=== PATIENT | female | born 1960 | race Caucasian/White ===

== ENCOUNTER 2019-04-19 17:03 | Emergency (ER) | payer MEDICAID ==
[~2019-04-19] VITALS: Ht 157.5 cm; Wt 81.6 kg
[2019-04-19 17:47] LABS: Basophils # (auto) 0.1 uL; Basophils % (auto) 0.6 % (0.0-2.0); Eosinophils # (auto) 0.1 uL; Eosinophils % (auto) 0.4 % (0.0-7.0); Hematocrit 48.2 % (36.0-46.0); Hemoglobin 16.5 g/dL (12.2-16.2); Lymphocytes # (auto) 3.1 uL; Lymphocytes % (auto) 22.8 % (10.0-50.0); Mean Corpuscular Hemoglobin 30.5 pg (28.0-32.0); Mean Corpuscular Hgb Conc. 34.2 g/dL (32.0-36.0); Mean Corpuscular Volume 89.3 fL (80.0-100.0); Monocytes # (auto) 0.7 uL; Monocytes % (auto) 5.5 % (0.0-12.0); Neutrophils # (auto) 9.5 uL; Neutrophils % (auto) 70.7 % (37.0-80.0); Nucleated Red Blood Cells % 0.1 %; Platelet Count (auto) 308 10^3/uL (140-450); Red Cell Distribution Width 12.9 % (11.8-14.3); White Blood Cell 13.4 10^3/uL (4.4-10.8)
[2019-04-19 18:04] LABS: Albumin 3.9 g/dL (3.4-5.0); Anion Gap 8 (5-15); Blood Urea Nitrogen 13 mg/dL (7-18); Carbon Dioxide 26 mmol/L (21-32); Chloride 103 mmol/L (98-107); Glucose 101 mg/dL (74-106); Lipase 86 U/L (73-393); Magnesium 2.2 mg/dL (1.6-2.6); Potassium 3.4 mmol/L (3.5-5.1); Sodium 137 mmol/L (136-145)
[2019-04-19 18:10] LABS: Alanine Aminotransferase 20 U/L (13-56); Alkaline Phosphatase 108 U/L (45-117); Aspartate Aminotransferase 14 U/L (15-37); BUN/Creatinine Ratio 13.4; Bilirubin, Total 0.5 mg/dL (0.2-1.0); GFR African American 75 mL/min; GFR Non-African American 62 mL/min; Total Protein 8.1 g/dL (6.4-8.2)
[2019-04-19] MEDS ORDERED: ONDANSETRON HCL 4 MG/2 ML VIAL IV ONE (18:30)
[2019-04-19 19:00] VITALS: BP 105/66
[2019-04-19] MEDS ORDERED: ONDANSETRON ODT 4 MG TAB PO ONE (20:00)
== END 2019-04-19 20:15 | disposition home or self-care (01) ==
LOC: ER 17:03
DX: A08.4 Viral intestinal infection, unspecified (principal); F17.210 Nicotine dependence, cigarettes, uncomplicated; J44.9 Chronic obstructive pulmonary disease, unspecified; F15.10 Other stimulant abuse, uncomplicated; Z88.6 Allergy status to analgesic agent
CPT/HCPCS: 36415; 74176; 80053; 83690; 83735; 84484; 85025; 99284; Q0162; 93005

== ENCOUNTER 2025-04-04 14:32 | Inpatient (IN) | payer MEDICARE, MEDICAID ==
[~2025-04-04] VITALS: Ht 157.5 cm; Wt 69.0 kg
--- NOTE | 2025-04-04 15:11 | ED.PDOC ---
History of Present Illness HPI Comments This is a 65-year-old female who comes in with chief complaint of shortness for breath x1 hour prior to arrival. The patient was at home and started getting somewhat short of breath. She does have a history of COPD and asthma. She typically uses 3 L nasal cannula of oxygen but this time she was only 78% on the home oxygen. When the paramedics arrived, the patient was also wheezing. They gave her to hand-held nebulizers of albuterol and Atrovent and the patient went up to approximately 97%. The patient was then placed on 4 L nasal cannula and she is now at 90%. The patient denies any chest pain but she does have a wound over chest from the treated for breast cancer. The patient was diagnosed breast cancer approximately six years ago and underwent radiation and now has an open wound to the chest. After the albuterol treatment, the patient became somewhat nauseated and vomited upon arrival to the emergency department's Chief Complaint: Shortness of Breath Time Seen by MD: 14:39 Primary Care Provider: NONE Reviewed Notes: Nurses Notes, Airport Driver Notes, Medications, Allergies (Allergies listed above) Allergies: Coded Allergies: Meperidine (Verified Allergy, Unknown, 01/07/18) Morphine (Verified Allergy, Unknown, 01/07/18) Information Source: Patient, Emergency Med Personnel Mode of Arrival: EMS Severity: Moderate Timing: Hours Duration: Since onset Prehospital treatment: Beta-Agonist Tx, Breathing Tx, IVF Associated signs and symptoms No associated chest pain that the patient has shortness for breath and wheezing Past Medical History PAST MEDICAL HISTORY: Asthma, COPD Past Medical History (Other): History of breast cancer diagnosed six years ago Surgical History: Appendectomy, Surgical History (Other): This history of breast cancer surgery 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 DEOILING MACHINE OPERATOR History Family History Family History: Unknown Social History Smoker: Cigarettes, Less Than 1 Pack/Day Alcohol: Denies ETOH Use Drugs: Methamphetamine Lives In: Home Constitutional: denies: chills, diaphoresis, fatigue, fever, malaise, sweats, weakness, others EENTM: denies: blurred vision, double vision, ear bleeding, ear discharge, ear drainage, ear pain, ear ringing, eye pain, eye redness, hearing loss, mouth pain, mouth swelling, nasal discharge, nose bleeding, nose congestion, nose pain, photophobia, tearing, throat pain, throat swelling, voice changes, others Respiratory: reports: cough, shortness of breath; denies: hemoptysis, orthopnea, SOB at rest, SOB with excertion, stridor, wheezing, others Cardiovascular: denies: chest pain, dizzy spells, diaphoresis, Dyspnea on exertion, edema, irregular heart beat, left arm pain, lightheadedness, palpitations, PND, syncope, others Gastrointestinal: reports: nausea, vomiting; denies: abdomen distended, abdominal pain, blood streaked bowels, constipated, diarrhea, dysphagia, difficulty swallowing, hematemesis, melena, poor appetite, poor fluid intake, rectal bleeding, rectal pain, others Genitourinary: denies: abnormal vagina bleeding, burning, dyspareunia, dysuria, flank pain, frequency, hematuria, incontinence, pain, , vagina discharge, urgency, others Neurological: denies: dizziness, fainting, headache, left sided numbness, left sided weakness, numbness, paresthesia, pre-existing deficit, right sided numbness, right sided weakness, seizure, speech problems, tingling, tremors, weakness, others Musculoskeletal: denies: back pain, gout, joint pain, joint swelling, muscle pain, muscle stiffness, neck pain, others Integumetry: denies: bruises, change in color, change in hair/nails, dryness, laceration, lesions, lumps, rash, wounds, others Allergic/Immunocompromised: denies: Difficulty Healing, Frequent Infections, Hives, Itching, others Hematologic/Lymphatic: denies: anemia, blood clots, easy bleeding, easy bruising, swollen glands, others Endocrine: denies: excessive hunger, excessive sweating, excessive thirst, excessive urination, flushing, intolerance to cold, intolerance to heat, unexplained weight gain, unexplained weight loss, others Psychiatric: denies: anxiety, bipolar disorder, depression, hopeless, panic disorder, schizophrenia, sleepless, suicidal, others Physical Exam General Appearance: Moderate Distress HEENT: Pale Conjuntivae (L), Pale Conjuntivae (R), Pharynx Normal, TMs Normal Neck: Full Range of Motion, Non-Tender, Normal, Normal Inspection Respiratory: Chest Non-Tender, No Accessory Muscle Use, Respiratory Distress, Wheezing Cardiovascular: No Edema, No JVD, No Murmur, No Gallop, Normal Peripheral Pulses, Regular Rate/Rhythm Breast Exam: Other (The patient is open the chest with some packing) Gastrointestinal: No Organomegaly, Non Tender, No Pulsatile Mass, Normal Bowel Sounds, Soft Genitalia: Deferred Pelvic: Deferred Rectal: Deferred Extremities: No calf tenderness, Normal capillary refill, No pedal edema Musculoskeletal : Apperance: Normal Neurologic: Alert, right of way manager II-XII nml as Tested, No Motor Deficits, Normal Affect, Normal Mood, No Sensory Deficits Cerebellar Function: Normal Reflexes: Normal Skin: Dry, Pallor, Warm Lymphatic: No Adenopathy Was a procedure done? Was a procedure done?: No EKG EKG : Pulse Rate (adult): 129 Crosby: Normal Cardiac Rhythm: Afib ST: Nonsp Differential Dx Considerations may include: COPD exacerbation, atrial fibrillation with rapid response, COPD exacerbation, respiratory failure X-Ray, Labs, Meds, VS Vital Signs Date Time Temp Pulse Resp B/P (MAP) Pulse Ox O2 Delivery O2 Flow Rate FiO2 04/04/25 16:00 Non-Rebreather 15 N/A 04/04/25 15:59 128 04/04/25 15:41 101.4 04/04/25 15:11 129 04/04/25 15:10 Nasal Cannula* 6 44 04/04/25 15:10 101.4 128 25 120/53 (75) 90 101.4 04/04/25 14:47 129 04/04/25 14:45 99.5 88 18 130/70 87 99.5 Lab Test 04/04/25 16:19 04/04/25 15:31 Range/Units Urine Color Pending Urine Clarity Pending Urine pH Pending Urine Specific Jet Pending Urine Protein Pending Urine Ketones Pending Urine Blood Pending Urine Nitrite Pending Urine Bilirubin Pending Urine Urobilinogen Pending Urine Leukocyte Esterase Pending Urine RBC Pending Urine Microscopic WBC Pending Urine Squamous Epithelial Cells Pending Urine Bacteria Pending Urine Glucose Pending White Blood Count 10.6 4.4-10.8 10^3/uL Red Blood Count 4.04 4.0-5.20 10^6/uL Hemoglobin 10.9 L 12.2-16.2 g/dL Hematocrit 32.9 L 36.0-46.0 % Mean Corpuscular Volume 81.3 80.0-100.0 fL Mean Corpuscular Hemoglobin 27.0 L 28.0-32.0 pg Mean Corpuscular Hemoglobin Concent 33.2 32.0-36.0 g/dL Red Cell Distribution Width 16.0 H 11.8-14.3 % Platelet Count 196 140-450 10^3/uL Mean Platelet Volume 6.4 L 6.9-10.8 fL Neutrophils (%) (Auto) 96.4 H 37.0-80.0 % Lymphocytes (%) (Auto) 2.0 L 10.0-50.0 % Monocytes (%) (Auto) 1.3 0.0-12.0 % Eosinophils (%) (Auto) 0.1 0.0-7.0 % Basophils (%) (Auto) 0.2 0.0-2.0 % Neutrophils # (Auto) 10.2 H 1.6-8.6 10 ^3/uL Lymphocytes # (Auto) 0.2 L 0.4-5.4 10 ^3/uL Monocytes # (Auto) 0.1 0-1.3 10 ^3/uL Eosinophils # (Auto) 0 0-0.8 10 ^3/uL Basophils # (Auto) 0 0-0.2 10 ^3/uL Nucleated Red Blood Cells 0.0 % Platelet Estimate Pending Sodium Level 140 136-145 mmol/L Potassium Level 3.3 L 3.5-5.1 mmol/L Chloride Level 99 98-107 mmol/L Carbon Dioxide Level 28 20-31 mmol/L Anion Gap 13 5-15 Blood Urea Nitrogen 18 9-23 mg/dL Creatinine 0.63 0.550-1.02 mg/dL Glomerular Filtration Rate Calc 97 >90 mL/min BUN/Creatinine Ratio 28.6 H 10.0-20.0 Serum Glucose 102 74-106 mg/dL Lactic Acid Level Pending Calcium Level 8.5 L 8.7-10.4 mg/dL Troponin I High Sensitivity 25 </=34 ng/L B-Type Natriuretic Peptide 88.04 0-100 pg/mL Current Medications Medications (Trade) Dose Ordered Sig/Efren Route Start Time Stop Time Status Last Admin Methylprednisolone Sodium Succinate (Solu Medrol) 125 mg ONCE ONCE IV 04/04/25 14:45 04/04/25 14:47 DC 04/04/25 15:16 Ondansetron HCl (Zofran) 4 mg ONCE ONCE IV 04/04/25 15:15 04/04/25 15:16 DC 04/04/25 15:16 Acetaminophen (Tylenol Tablet) 650 mg ONCE ONCE PO 04/04/25 15:15 04/04/25 15:25 DC 04/04/25 15:41 Levofloxacin/ Dextrose 100 ml @ 100 mls/hr ONCE ONCE IV 04/04/25 16:15 04/04/25 17:14 04/04/25 16:33 IV Hep-Lock was established The patient was given a breathing treatment here in the emergency department's The patient's CBC is within normal limits. Patient was given Solu-Medrol 125 mg IV push The patient was given Zofran 4 mg IV push The patient was also given acetaminophen 650 mg by mouth nine the patient has a temperature of a 101.4 The patient is being admitted at this time Blood cultures x2 were drawn The lactic acid level is pending The patient was started on vancomycin and Levaquin after blood cultures were drawn The chest x-ray shows IMPRESSION: Innumerable nodules throughout both lungs, suspect metastatic disease. Please correlate with prior imaging. Images Reviewed?: Images reviewed and evaluated by me Time of 1ST Reevaluation: 15:10 Reevaluation 1ST: Unchanged Patient Education/Counseling: Diagnosis, Treatment, Prognosis Family Education/Counseling: No Family Present SEPSIS Sepsis Screen Physician Orders Complete Blood Count (04/04/25 14:44) Urinalysis (04/04/25 14:44) Med Neb Initial Treatment (04/04/25 14:44) Chest Portable (04/04/25 14:44) Heplock Iv (04/04/25 14:44) Pulse Oximetry (04/04/25 14:44) Oxygen (04/04/25 14:44) Prefitter (04/04/25 14:44) Blood Pressure (04/04/25 14:44) Electrocardigram (04/04/25 14:44) Troponin-I Hs (04/04/25 15:44) Troponin-I Hs (04/04/25 17:44) Electrocardigram (04/04/25 15:44) Electrocardigram (04/04/25 17:44) Ok To Use Picc (04/04/25 15:11) Dumont Catheters (04/04/25 ) Blood Culture (04/04/25 16:07) Lactic Acid W/ Reflex Order (04/04/25 16:07) Rapid Influenza A&B (04/04/25 16:07) Covid19 Antigen Mariela (04/04/25 ) Vancomycin 1gm/250ml Kit (04/04/25 16:15) Levofloxacin 500mg (Levaquin 500mg/ 100m (04/04/25 16:15) Rbc Morphology (04/04/25 15:31) Vital Signs Date Time Temp Pulse Resp B/P (MAP) Pulse Ox O2 Delivery O2 Flow Rate FiO2 04/04/25 16:00 Non-Rebreather 15 N/A 04/04/25 15:59 128 04/04/25 15:41 101.4 04/04/25 15:11 129 04/04/25 15:10 Nasal Cannula* 6 44 04/04/25 15:10 101.4 128 25 120/53 (75) 90 101.4 04/04/25 14:47 129 04/04/25 14:45 99.5 88 18 130/70 87 99.5 Laboratory Tests Test 04/04/25 15:31 Lactic Acid Level Pending White Blood Count 10.6 10^3/uL (4.4-10.8) Medications Medications Dose Ordered Sig/Efren Route Start Time Stop Time Status Last Admin Dose Admin Acetaminophen 650 mg ONCE ONCE PO 04/04/25 15:15 04/04/25 15:25 DC 04/04/25 15:41 Levofloxacin/ Dextrose 100 ml @ 100 mls/hr ONCE ONCE IV 04/04/25 16:15 04/04/25 17:14 04/04/25 16:33 Methylprednisolone Sodium Succinate 125 mg ONCE ONCE IV 04/04/25 14:45 04/04/25 14:47 DC 04/04/25 15:16 Ondansetron HCl 4 mg ONCE ONCE IV 04/04/25 15:15 04/04/25 15:16 DC 04/04/25 15:16 Departure 1 Departure Time of Disposition: 16:38 Impression: Primary Impression: COPD (chronic obstructive pulmonary disease) Qualified Codes: J44.9 - Chronic obstructive pulmonary disease, unspecified Additional Impression: Fever Qualified Codes: R50.9 - Fever, unspecified Disposition: 09 ADMITTED INPATIENT Admit to: Tele Condition: Fair Critical Care Note Critical Care Time?: Yes (45 min-critical care time only) Stability Stability form required: Yes Unstable for transfer: Telemetry monitoring (Telemetry monitoring required), ED Physician Assesment (Clinical assesment) Heart Score Heart Score: Heart Score Response (Comments) Value History Moderate Suspicious 1 EKG Repolarization Disturb 1 Age >65 2 Risk Factors >3 or Hx ASHD 2 Troponin 1-2 x's Normal limit 1 Total 7 JAM MAURER MD Apr 04, 2025 15:11
[2025-04-04] MEDS: methylPREDNISolone SOD SUCC 125 MG/2 ML VL IV ONE (15:16)
[2025-04-04] MEDS: ONDANSETRON HCL 4 MG/2 ML VIAL IV ONE (15:16)
--- NOTE | 2025-04-04 15:16 | DVH ---
CLINICAL HISTORY: sob TECHNIQUE: Single view of the chest was obtained. COMPARISON: CT CHEST/ABDOMEN/PELVIS STORAGE OF OUTSIDE FILMS on DOS: 11/28/24, XR CHEST 1 VIEW on DOS: 11/27/21, XR CHEST 1 VIEW on DOS: 11/27/21 FINDINGS: The heart size and pulmonary vasculature are normal. There are innumerable nodules throughout both daniela ngs. A right PICC terminates at the cavoatrial junction. IMPRESSION: Innumerable nodules throughout both lungs, suspect metastatic disease. Please correlate with prior im aging.
[2025-04-04] MEDS: ACETAMINOPHEN 325 MG TAB PO ONE (15:41)
[2025-04-04 16:01] LABS: Hematocrit 32.9 % (36.0-46.0); Hemoglobin 10.9 g/dL (12.2-16.2); Mean Corpuscular Hemoglobin 27.0 pg (28.0-32.0); Mean Corpuscular Volume 81.3 fL (80.0-100.0); Nucleated Red Blood Cells % 0.0 %
[2025-04-04 16:10] LABS: Chloride 99 mmol/L (98-107); Sodium 140 mmol/L (136-145)
[2025-04-04 16:11] LABS: Anion Gap 13 (5-15); Carbon Dioxide 28 mmol/L (20-31)
[2025-04-04 16:12] LABS: Calcium 8.5 mg/dL (8.7-10.4); Potassium 3.3 mmol/L (3.5-5.1)
[2025-04-04 16:17] LABS: BUN/Creatinine Ratio 28.6 (10.0-20.0); Blood Urea Nitrogen 18 mg/dL (9-23); Glucose 102 mg/dL (74-106)
[2025-04-04 16:38] LABS: Anisocytosis Slight
[2025-04-04 16:40] LABS: Stomatocytes Few
[2025-04-04 16:42] LABS: Urine Budding Yeast OCCASIONAL /hpf (None Seen); Urine Protein, UAD 1+ (Negative)
[2025-04-04 16:46] LABS: Lactic Acid w/Reflex 2.2 mmol/L (0.4-2.0)
[2025-04-04] MEDS: VANCOMYCIN 1GM/250ML KIT 250 ML IV ONE (17:45)
--- NOTE | 2025-04-04 18:28 | ECG ---
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
--- NOTE | 2025-04-04 18:28 | ECG ---
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
[2025-04-04] MEDS: HYDROmorphone HCL 2 MG/ML VL/or syr IV ONE (18:36)
[2025-04-04 19:25] VITALS: PULSE 88; RESP 16; O2SAT 96
[2025-04-04] MEDS ORDERED: HYDROcodone-ACET 5/325MG TAB PO PRN (20:15)
[2025-04-04] MEDS ORDERED: TEMAZEPAM 15 MG CAP PO PRN (20:15)
[2025-04-04 20:56] VITALS: O2SAT 94
[2025-04-04 21:00] VITALS: BP 109/62; PULSE 87; RESP 18; TEMP 98.2; O2SAT 94
[2025-04-04] MEDS: CEFEPIME 1GM/50ML 50 ML IV SCH (23:39)
[2025-04-04] MEDS: CLINDAMYCIN 600MG IV 50 ML IV SCH (23:39)
--- NOTE | 2025-04-05 01:16 | DVHHP2 ---
History of Present Illness Reason for Visit: Shortness for breath History of Present Illness 65-year-old female presents for evaluation of shortness for breath. Patient reports a history of breast cancer currently completing radiation therapy with [facility]. She reports developing open wounds across her chest that have bec ome infected. She has home health treat her wounds on a daily basis. She states chemotherapy is currently on hold due to infected wounds. She states developing worsening shortness for breath over the past one day. She reports having a scan of her chest two weeks ago and is awaiting results. Denies chest pain. Past Medical History Breast cancer, COPD Past Surgical History Appendectomy, Family History Noncontributory Smoke: <1 pack per day ALCOHOL: none Lives: with Family Review of Systems Review of Systems Review of systems are currently negative otherwise addressed in HPI. Allergies: Coded Allergies: Meperidine (Verified Allergy, Unknown, 01/07/18) Morphine (Verified Allergy, Unknown, 01/07/18) Medications Current Medications Medications Dose Ordered Sig/Efren Route Start Time Stop Time Status Last Admin Dose Admin Clindamycin Phosphate 50 ml @ 50 mls/hr Q8HR IV 04/04/25 22:00 04/04/25 23:39 50 MLS/HR Cefepime HCl 50 ml @ 12.5 mls/hr Q12HR IV 04/04/25 22:00 04/04/25 23:39 12.5 MLS/HR Hydromorphone HCl 0.5 mg Q6HPRN PRN IV 04/04/25 20:15 Albuterol 2.5 mg Q6HPRN PRN NEB 04/04/25 20:15 Acetaminophen/ Hydrocodone Bitart 1 tab Q4HP PRN PO 04/04/25 20:15 Temazepam 15 mg QHSP PRN PO 04/04/25 20:15 Ondansetron HCl 4 mg Q4HP PRN IV 04/04/25 20:15 Acetaminophen 650 mg Q6HP PRN PO 04/04/25 20:15 Exam Vital Signs Vital Signs Date Time Temp Pulse Resp B/P (MAP) Pulse Ox O2 Delivery O2 Flow Rate FiO2 04/05/25 00:00 78 04/05/25 00:00 14 107/49 (68) 98 04/04/25 21:00 98.2 5.0 40 98.2 04/04/25 20:56 Nasal Cannula Exam Gen: 65-year-old female in mild distress Skin: Warm, dry, normal color and texture, multiple open wounds across her chest HEENT: Normocephalic atraumatic, mucous membranes moist and pink. Neck: Cervical and supraclavicular nodes normal without enlargement, trachea is midline, thyroid gland is normal without masses. Pulmonary: Clear to auscultation and percussion bilaterally. Cardiac: Regular rate and rhythm. No murmur Abdomen: Soft, nontender, nondistended, bowel sounds present all 4 quadrants, no guarding, no rigidity, no organomegaly. Extremities: No cyanosis, clubbing, no edema Neuro: Cranial nerves II through XII grossly intact, normal affect and speech, no focal motor deficits. Labs/Xrays ORDERING PHYSICIAN: JAM MAURER MD PROCEDURE(s): CXRP - CHEST PORTABLE REASON: sob ORDER NUMBER(s): [id number], ACCESSION NUMBER(s): [id number] CLINICAL HISTORY: sob TECHNIQUE: Single view of the chest was obtained. COMPARISON: CT CHEST/ABDOMEN/PELVIS STORAGE OF OUTSIDE FILMS on DOS: 11/28/24, XR CHEST 1 VIEW on DOS: 11/27/21, XR CHEST 1 VIEW on DOS: 11/27/21 FINDINGS: The heart size and pulmonary vasculature are normal. There are innumerable nodules throughout both lungs. A right PICC terminates at the cavoatrial junction. IMPRESSION: Innumerable nodules throughout both lungs, suspect metastatic disease. Please correlate with prior imaging. Labs Test 04/04/25 18:47 04/04/25 17:13 04/04/25 16:19 04/04/25 15:31 Range/Units Troponin I High Sensitivity 23 </=34 ng/L Lactic Acid Level 2.3 *H 0.4-2.0 mmol/L Urine Color Yellow Yellow Urine Clarity Turbid H Clear Urine pH 6.0 5.0-9.0 Urine Specific [place] 1.031 1.001-1.035 Urine Protein 1+ H Negative Urine Ketones 1+ H Negative Urine Blood 3+ H Negative /uL Urine Nitrite Negative Negative Urine Bilirubin Negative Negative Urine Urobilinogen Normal Negative mg/dL Urine Leukocyte Esterase Trace Negative /uL Urine RBC 417 0 - 4 /hpf Urine Microscopic WBC 10 H 0-5 /HPF Urine Squamous Epithelial Cells Many <5 /hpf Urine Bacteria Few H None Seen /hpf Urine Mucus Few None Seen Urine Yeast (Budding) Occasional None Seen /hpf Urine Glucose Normal Normal mg/dL White Blood Count 10.6 4.4-10.8 10^3/uL Red Blood Count 4.04 4.0-5.20 10^6/uL Hemoglobin 10.9 L 12.2-16.2 g/dL Hematocrit 32.9 L 36.0-46.0 % Mean Corpuscular Volume 81.3 80.0-100.0 fL Mean Corpuscular Hemoglobin 27.0 L 28.0-32.0 pg Mean Corpuscular Hemoglobin Concent 33.2 32.0-36.0 g/dL Red Cell Distribution Width 16.0 H 11.8-14.3 % Platelet Count 196 140-450 10^3/uL Mean Platelet Volume 6.4 L 6.9-10.8 fL Neutrophils (%) (Auto) 96.4 H 37.0-80.0 % Lymphocytes (%) (Auto) 2.0 L 10.0-50.0 % Monocytes (%) (Auto) 1.3 0.0-12.0 % Eosinophils (%) (Auto) 0.1 0.0-7.0 % Basophils (%) (Auto) 0.2 0.0-2.0 % Neutrophils # (Auto) 10.2 H 1.6-8.6 10 ^3/uL Lymphocytes # (Auto) 0.2 L 0.4-5.4 10 ^3/uL Monocytes # (Auto) 0.1 0-1.3 10 ^3/uL Eosinophils # (Auto) 0 0-0.8 10 ^3/uL Basophils # (Auto) 0 0-0.2 10 ^3/uL Nucleated Red Blood Cells 0.0 % Platelet Estimate Adequate Anisocytosis (manual) Slight Stomatocytes Few Sodium Level 140 136-145 mmol/L Potassium Level 3.3 L 3.5-5.1 mmol/L Chloride Level 99 98-107 mmol/L Carbon Dioxide Level 28 20-31 mmol/L Anion Gap 13 5-15 Blood Urea Nitrogen 18 9-23 mg/dL Creatinine 0.63 0.550-1.02 mg/dL Glomerular Filtration Rate Calc 97 >90 mL/min BUN/Creatinine Ratio 28.6 H 10.0-20.0 Serum Glucose 102 74-106 mg/dL Calcium Level 8.5 L 8.7-10.4 mg/dL B-Type Natriuretic Peptide 88.04 0-100 pg/mL SEPSIS Sepsis Screen Date sepsis recognized/suspect: Apr 04, 2025 Time Sepsis recognized/suspect: 1929 Recent Procedure: No On Antibiotic Therapy: Yes Respiratory Rate >20: No Heart Rate >90: No Temp<36 C (96.8 F) or >38.3 C: Yes SBP <90 or MAP <65 mmHG: No New Acute Mental Status Change: No Is the patient on CPAP, BIPAP,: No Physician Orders Admit (04/04/25 19:54) Clindamycin 600mg Iv (Cleocin Iv) (04/04/25 22:00) Cefepime 1gm/50ml (Maxipime 1gm/50ml) (04/04/25 22:00) Hydromorphone Injection (Dilaudid Inject (04/04/25 20:15) Albuterol Medneb (Ventolin Medneb) (04/04/25 20:15) Hydrocodone-Acet 5/325mg Tab (Dexter 5/32 (04/04/25 20:15) Temazepam (Restoril) (04/04/25 20:15) Ondansetron Hcl (Zofran) (04/04/25 20:15) Complete Blood Count (04/05/25 04:00) Comprehensive Metabolic Panel (04/05/25 04:00) Cardiac Diet-2gna,Lofat,Lochol (04/05/25 Breakfast) Condition: Stable (04/04/25 20:01) Acetaminophen Tablet (Tylenol Tablet) (04/04/25 20:15) Bedrest With Bathroom Privileg (04/04/25 20:01) *Consult Dr. Ulices Steele (04/04/25 20:01) *Consult (04/04/25 20:01) Wound Culture W/ Gs (04/04/25 21:12) Vital Signs Date Time Temp Pulse Resp B/P (MAP) Pulse Ox O2 Delivery O2 Flow Rate FiO2 04/05/25 00:00 78 04/05/25 00:00 77 14 107/49 (68) 98 04/04/25 22:00 88 18 118/62 (80) 04/04/25 21:00 98.2 87 18 109/62 94 5.0 40 98.2 04/04/25 20:56 94 Nasal Cannula 5.0 04/04/25 20:56 94 Nasal Cannula* 4 36 04/04/25 20:00 87 04/04/25 20:00 98.2 87 16 109/62 (78) 96 98.2 04/04/25 19:25 88 16 96 Nasal Cannula* 6 44 04/04/25 19:14 86 10 177/84 04/04/25 18:36 90 24 112/49 04/04/25 18:16 120 25 115/66 (82) 97 Laboratory Tests Test 04/04/25 15:31 04/04/25 17:13 Lactic Acid Level 2.2 mmol/L (0.4-2.0) *H 2.3 mmol/L (0.4-2.0) *H White Blood Count 10.6 10^3/uL (4.4-10.8) Medications Medications Dose Ordered Sig/Efren Route Start Time Stop Time Status Last Admin Dose Admin Acetaminophen 650 mg ONCE ONCE PO 04/04/25 15:15 04/04/25 15:25 DC 04/04/25 15:41 650 MG Cefepime HCl 50 ml @ 12.5 mls/hr Q12HR IV 04/04/25 22:00 04/04/25 23:39 12.5 MLS/HR Clindamycin Phosphate 50 ml @ 50 mls/hr Q8HR IV 04/04/25 22:00 04/04/25 23:39 50 MLS/HR Hydromorphone HCl 0.5 mg ONCE ONCE IV 04/04/25 18:30 04/04/25 18:31 DC 04/04/25 18:36 0.5 MG Levofloxacin/ Dextrose 100 ml @ 100 mls/hr ONCE ONCE IV 04/04/25 16:15 04/04/25 17:14 DC 04/04/25 16:33 100 MLS/HR Methylprednisolone Sodium Succinate 125 mg ONCE ONCE IV 04/04/25 14:45 04/04/25 14:47 DC 04/04/25 15:16 125 MG Ondansetron HCl 4 mg ONCE ONCE IV 04/04/25 15:15 04/04/25 15:16 DC 04/04/25 15:16 4 MG Vancomycin HCl 250 ml @ 250 mls/hr ONCE ONCE IV 04/04/25 16:15 04/04/25 17:14 DC 04/04/25 17:45 250 MLS/HR Assessment/Plan Assessment/Plan Assessment Acute on chronic respiratory failure COPD exacerbation ? Metastatic disease History of breast cancer Hypokalemia Multiple infected open wounds across chest Plan Admit the patient to [facility] to the hospitalist Clindamycin/cefepime Wound consult Wound cultures Pulmonary consult Oncology consultation Pain management Continue treatment per orders. Plan discussed with: Patient My Orders Orders - ASHLEY KENT AGACNP Procedure Category Date Status Time Admit ADMIT 04/04/25 Transmitted 19:54 Clindamycin 600mg Iv PHA 04/04/25 In Process (Cleocin Iv) 22:00 Cefepime 1gm/50ml PHA 04/04/25 In Process (Maxipime 1gm/50ml) 22:00 Hydromorphone PHA 04/04/25 In Process Injection (Dilaudid 20:15 Albuterol Medneb PHA 04/04/25 In Process (Ventolin Medneb) 20:15 Hydrocodone-Acet PHA 04/04/25 In Process 5/325mg Tab (Dexter 20:15 Temazepam (Restoril) PHA 04/04/25 In Process 20:15 Ondansetron Hcl PHA 04/04/25 In Process (Zofran) 20:15 Complete Blood Count LAB 04/05/25 Logged 04:00 Comprehensive LAB 04/05/25 Logged Metabolic Panel 04:00 Cardiac DIET 04/05/25 Transmitted Diet-2gna,Lofat,Lochol Breakfast Condition: Stable MAYRA 04/04/25 In Process 20:01 Acetaminophen Tablet PHA 04/04/25 In Process (Tylenol Tablet) 20:15 Bedrest With Bathroom MAYRA 04/04/25 In Process Privileg 20:01 *Consult Dr. Ulices Steele CONS 04/04/25 Transmitted 20:01 *Consult CONS 04/04/25 Transmitted 20:01 Wound Culture W/ Gs MAGGI 04/04/25 In Process 21:12 Date of Service: Apr 04, 2025 Billing Provider: ASHLEY KENT Common Visit Codes: [id number] INP/OBS CARE (HIGH) ASHLEY KENT Apr 05, 2025 01:16
[2025-04-05 05:25] LABS: Hematocrit 30.7 % (36.0-46.0); Hemoglobin 10.0 g/dL (12.2-16.2); Nucleated Red Blood Cells % 0.0 %
[2025-04-05 05:26] LABS: Mean Corpuscular Hemoglobin 26.6 pg (28.0-32.0); Mean Corpuscular Volume 81.6 fL (80.0-100.0)
[2025-04-05 05:42] LABS: Alanine Aminotransferase 14 U/L (7-40); Albumin 3.4 g/dL (3.2-4.8); Anion Gap 10 (5-15); BUN/Creatinine Ratio 23.7 (10.0-20.0); Blood Urea Nitrogen 14 mg/dL (9-23); Calcium 8.9 mg/dL (8.7-10.4); Carbon Dioxide 29 mmol/L (20-31); Chloride 98 mmol/L (98-107); Potassium 3.7 mmol/L (3.5-5.1); Sodium 137 mmol/L (136-145); Total Protein 6.6 g/dL (5.7-8.2)
[2025-04-05 05:43] LABS: Bilirubin, Total 0.4 mg/dL (0.2-1.0)
[2025-04-05 05:45] LABS: Alkaline Phosphatase 366 U/L (46-116); Glucose 126 mg/dL (74-106)
[2025-04-05 06:02] VITALS: O2SAT 94
[2025-04-05] MEDS: ACETAMINOPHEN 325 MG TAB PO PRN (06:29)
[2025-04-05 08:00] VITALS: PULSE 76; RESP 14; O2SAT 98
[2025-04-05] MEDS: HYDROmorphone HCL 2 MG/ML VL/or syr IV PRN (09:24)
[2025-04-05] MEDS: ONDANSETRON HCL 4 MG/2 ML VIAL IV PRN (09:26)
--- NOTE | 2025-04-05 10:53 | DVHPN2 ---
Subjective The patient seen and examined at bedside. Feel better but still SOB. Reviewed: Care Plan, H&P, Labs, Medications, Previous Orders, Radiology Changes from previous H/P or p: No Changes Objective Vitals Vital Signs Date Time Temp Pulse Resp B/P (MAP) Pulse Ox O2 Delivery O2 Flow Rate FiO2 04/05/25 10:25 80 12 115/60 04/05/25 09:41 97.3 04/05/25 06:02 94 Nasal Cannula* 5 40 Intake/Output Intake and Output 04/05/25 07:00 Intake Total 150 ml Balance 150 ml Intake IV Total 150 ml General Appearance: Alert, Oriented X3, Cooperative, mild distress HEENT: Atraumatic, PERRLA, EOMI, Mucous membr. moist/pink Neck: Supple Lungs: Clear to auscultation, Normal air movement Cardiovascular: Regular rate, Normal S1, Normal S2, No murmurs, Gallops, Rubs Abdomen: Normal bowel sounds, Soft, No tenderness Neuro: Cranial nerves 3-12 NL Psych/Mental Status: Mental status NL Medications Current Medications Medications Dose Ordered Sig/Efren Route Start Time Stop Time Status Last Admin Dose Admin Clindamycin Phosphate 50 ml @ 50 mls/hr Q8HR IV 04/04/25 22:00 04/05/25 06:34 50 MLS/HR Cefepime HCl 50 ml @ 12.5 mls/hr Q12HR IV 04/04/25 22:00 04/04/25 23:39 12.5 MLS/HR Hydromorphone HCl 0.5 mg Q6HPRN PRN IV 04/04/25 20:15 04/05/25 09:24 0.5 MG Albuterol 2.5 mg Q6HPRN PRN NEB 04/04/25 20:15 Temazepam 15 mg QHSP PRN PO 04/04/25 20:15 Ondansetron HCl 4 mg Q4HP PRN IV 04/04/25 20:15 04/05/25 09:26 4 MG Acetaminophen 650 mg Q6HP PRN PO 04/04/25 20:15 04/05/25 06:29 650 MG Oxycodone/ Acetaminophen 1 tab Q4HP PRN PO 04/05/25 07:15 Laboratory Results Laboratory Tests 04/05/25 04:53 Chemistry Test 04/04/25 15:31 04/05/25 04:53 Calcium Level 8.5 mg/dL (8.7-10.4) L 8.9 mg/dL (8.7-10.4) Albumin 3.4 g/dL (3.2-4.8) Total Protein 6.6 g/dL (5.7-8.2) Cardiac Markers Test 04/04/25 15:31 B-Type Natriuretic Peptide 88.04 pg/mL (0-100) LFT Test 04/05/25 04:53 Alanine Aminotransferase (ALT) 14 U/L (7-40) Alkaline Phosphatase 366 U/L (46-116) H Aspartate Amino Transferase (AST) 48 U/L (13-40) H Total Bilirubin 0.4 mg/dL (0.2-1.0) Urinalysis Test 04/04/25 16:19 Urine Color Yellow (Yellow) Urine Clarity Turbid (Clear) H Urine pH 6.0 (5.0-9.0) Urine Specific [place] 1.031 (1.001-1.035) Urine Protein 1+ (Negative) H Urine Ketones 1+ (Negative) H Urine Blood 3+ /uL (Negative) H Urine Nitrite Negative (Negative) Urine Bilirubin Negative (Negative) Urine Urobilinogen Normal mg/dL (Negative) Urine Leukocyte Esterase Trace /uL (Negative) Urine RBC 417 /hpf (0 - 4) Urine Microscopic WBC 10 /HPF (0-5) H Urine Squamous Epithelial Cells Many /hpf (<5) Urine Bacteria Few /hpf (None Seen) H Urine Mucus Few (None Seen) Urine Yeast (Budding) Occasional /hpf (None Urine Glucose Normal mg/dL (Normal) Microbiology Microbiology Date/Time Source Procedure Growth Status 04/04/25 15:31 Blood Blood Culture - Preliminary Resulted Labs and/or images reviewed: Labs reviewed by me Assessment/Plan Assessment/Plan Acute on chronic respiratory failure COPD exacerbation ? Metastatic disease History of breast cancer Hypokalemia Multiple infected open wounds across chest Plan Continue current management. Continue with Clindamycin and cefepime IV Per patient, she had treatment at [facility] for breast cancer with chemotherapy. However, the doctor said she didn't need mastectomy. 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 Waiting for precision lens generator to see patient. Wound consult Wound cultures Pain management with [place]. Per patient she will see her oncologist at [facility] again. This medical document was created using an electronic medical record system with [employer] direct computerized dictation system. Although this document has been carefully reviewed, there may still be some phonetic and typographical errors. These areas are purely typographical due to imperfections of the software programs, and do not reflect any compromise in the patient's medical care. Plan discussed with: Patient Date of Service: Apr 05, 2025 Billing Provider: JUAN CAST MD Common Visit Codes: [id number] INP/OBS CARE(HIGH) JUAN CAST MD Apr 05, 2025 10:53
[2025-04-05 12:55] LABS: COVID19 ANTIGEN SOFIA FIA NEGATIVE (NEGATIVE)
[2025-04-05] MEDS: OXYCODONE W/ ACETAMINOPHEN 5/325MG TABLET PO PRN (13:21)
[2025-04-05 18:08] VITALS: BP 133/68; PULSE 82; RESP 18; TEMP 98.1; O2SAT 96
[2025-04-05] MEDS ORDERED: OXY10CRT PO (18:39)
[2025-04-05] MEDS ORDERED: FLUT1AER3 INH (18:39)
--- NOTE | 2025-04-05 19:16 | DVHINCON2 ---
Date of service: Apr 05, [address] jimena le History of Present Illness Home Meds Reported Medications Oxycodone Hcl (OxyCONTIN ER Tablet) 10 Mg Tb, 1 TAB PO BID 04/05/25 Ulrvicdhcqj-Dcfwzgigxwza-Umtjw (Trelegy Ellipta 100-62.5-25 Mcg/INH) 1 Aer Aer, 1 PUFF INH DAILY 04/05/25 Past Medical History Patient Family History: Patient reports no known family medical history. H&P Exam Vital Signs Vital Signs Date Time Temp Pulse Resp B/P (MAP) Pulse Ox O2 Delivery O2 Flow Rate FiO2 04/05/25 18:08 Nasal Cannula* 5 40 04/05/25 18:08 98.1 82 18 133/68 (89) 96 98.1 Labs/Xrays Labs Test 04/05/25 04:53 04/04/25 18:47 04/04/25 17:13 04/04/25 16:19 Range/Units White Blood Count 19.2 #H 4.4-10.8 10^3/uL Red Blood Count 3.76 L 4.0-5.20 10^6/uL Hemoglobin 10.0 L 12.2-16.2 g/dL Hematocrit 30.7 L 36.0-46.0 % Mean Corpuscular Volume 81.6 80.0-100.0 fL Mean Corpuscular Hemoglobin 26.6 L 28.0-32.0 pg Mean Corpuscular Hemoglobin Concent 32.6 32.0-36.0 g/dL Red Cell Distribution Width 16.1 H 11.8-14.3 % Platelet Count 186 140-450 10^3/uL Mean Platelet Volume 6.6 L 6.9-10.8 fL Neutrophils (%) (Auto) 95.7 H 37.0-80.0 % Lymphocytes (%) (Auto) 2.6 L 10.0-50.0 % Monocytes (%) (Auto) 1.5 0.0-12.0 % Eosinophils (%) (Auto) 0.0 0.0-7.0 % Basophils (%) (Auto) 0.2 0.0-2.0 % Neutrophils # (Auto) 18.4 H 1.6-8.6 10 ^3/uL Lymphocytes # (Auto) 0.5 0.4-5.4 10 ^3/uL Monocytes # (Auto) 0.3 0-1.3 10 ^3/uL Eosinophils # (Auto) 0 0-0.8 10 ^3/uL Basophils # (Auto) 0 0-0.2 10 ^3/uL Nucleated Red Blood Cells 0.0 % Sodium Level 137 136-145 mmol/L Potassium Level 3.7 3.5-5.1 mmol/L Chloride Level 98 98-107 mmol/L Carbon Dioxide Level 29 20-31 mmol/L Anion Gap 10 5-15 Blood Urea Nitrogen 14 9-23 mg/dL Creatinine 0.59 0.550-1.02 mg/dL Glomerular Filtration Rate Calc 99 >90 mL/min BUN/Creatinine Ratio 23.7 H 10.0-20.0 Serum Glucose 126 H 74-106 mg/dL Calcium Level 8.9 8.7-10.4 mg/dL Total Bilirubin 0.4 0.2-1.0 mg/dL Aspartate Amino Transferase (AST) 48 H 13-40 U/L Alanine Aminotransferase (ALT) 14 7-40 U/L Alkaline Phosphatase 366 H 46-116 U/L Total Protein 6.6 5.7-8.2 g/dL Albumin 3.4 3.2-4.8 g/dL Troponin I High Sensitivity 23 </=34 ng/L Lactic Acid Level 2.3 *H 0.4-2.0 mmol/L Urine Color Yellow Yellow Urine Clarity Turbid H Clear Urine pH 6.0 5.0-9.0 Urine Specific [place] 1.031 1.001-1.035 Urine Protein 1+ H Negative Urine Ketones 1+ H Negative Urine Blood 3+ H Negative /uL Urine Nitrite Negative Negative Urine Bilirubin Negative Negative Urine Urobilinogen Normal Negative mg/dL Urine Leukocyte Esterase Trace Negative /uL Urine RBC 417 0 - 4 /hpf Urine Microscopic WBC 10 H 0-5 /HPF Urine Squamous Epithelial Cells Many <5 /hpf Urine Bacteria Few H None Seen /hpf Urine Mucus Few None Seen Urine Yeast (Budding) Occasional None Seen /hpf Urine Glucose Normal Normal mg/dL Test 04/04/25 15:31 04/04/25 11:00 Range/Units Platelet Estimate Adequate Anisocytosis (manual) Slight Stomatocytes Few B-Type Natriuretic Peptide 88.04 0-100 pg/mL Influenza Type A Antigen Negative Negative Influenza Type B Antigen Negative Negative SARS-CoV-2 Antigen (Rapid) Negative NEGATIVE Microbiology Date/Time Source Procedure Growth Status 04/04/25 21:19 Chest Gram Stain - Final Resulted 04/04/25 21:19 Chest Wound Culture - Preliminary Resulted 04/04/25 15:31 Blood Blood Culture - Preliminary Resulted ENRIQUETA BARNES MD Apr 05, 2025 19:16
[2025-04-05 20:00] VITALS: PULSE 84; RESP 16; O2SAT 96
[2025-04-05 21:00] VITALS: BP 126/75; PULSE 91; RESP 20; TEMP 98.5; O2SAT 97
[2025-04-05 22:41] VITALS: O2SAT 97
[2025-04-06] VITALS (13 sets, daily range): BP systolic 128–149; BP diastolic 72–81; PULSE 81–94; RESP 16–94; TEMP 97.5–98.4; O2SAT 93–99
[2025-04-06 05:49] LABS: Hemoglobin 10.0 g/dL (12.2-16.2); Nucleated Red Blood Cells % 0.0 %
[2025-04-06 05:51] LABS: Hematocrit 30.2 % (36.0-46.0); Mean Corpuscular Hemoglobin 26.8 pg (28.0-32.0); Mean Corpuscular Volume 81.2 fL (80.0-100.0)
[2025-04-06 05:54] LABS: Chloride 100 mmol/L (98-107); Sodium 139 mmol/L (136-145)
[2025-04-06 05:55] LABS: Anion Gap 10 (5-15); Carbon Dioxide 29 mmol/L (20-31); Potassium 3.2 mmol/L (3.5-5.1)
[2025-04-06 05:58] LABS: Calcium 8.6 mg/dL (8.7-10.4)
[2025-04-06 06:00] LABS: BUN/Creatinine Ratio 42.3 (10.0-20.0); Blood Urea Nitrogen 22 mg/dL (9-23); Glucose 101 mg/dL (74-106)
[2025-04-06] MEDS: ALBUTEROL SULF 2.5 MG/0.5ML(0.5%) NEB SOLN NEB PRN (07:15)
--- NOTE | 2025-04-06 10:49 | DVHPN2 ---
Subjective The patient seen and examined at bedside. Feel better but still SOB. Reviewed: Care Plan, H&P, Labs, Medications, Previous Orders, Radiology Changes from previous H/P or p: No Changes Objective Vitals Vital Signs Date Time Temp Pulse Resp B/P (MAP) Pulse Ox O2 Delivery O2 Flow Rate FiO2 04/06/25 09:00 98.4 94 18 148/73 (98) 98 98.4 04/06/25 08:00 Nasal Cannula* 5 40 Intake/Output Intake and Output 04/06/25 07:00 Intake Total 325 ml Balance 325 ml Intake Oral 325 ml General Appearance: Alert, Oriented X3, Cooperative, mild distress HEENT: Atraumatic, PERRLA, EOMI, Mucous membr. moist/pink Neck: Supple Lungs: Clear to auscultation, Normal air movement Cardiovascular: Regular rate, Normal S1, Normal S2, No murmurs, Gallops, Rubs Abdomen: Normal bowel sounds, Soft, No tenderness Neuro: Cranial nerves 3-12 NL Psych/Mental Status: Mental status NL Medications Current Medications Medications Dose Ordered Sig/Efren Route Start Time Stop Time Status Last Admin Dose Admin Clindamycin Phosphate 50 ml @ 50 mls/hr Q8HR IV 04/04/25 22:00 04/06/25 07:07 50 MLS/HR Cefepime HCl 50 ml @ 12.5 mls/hr Q12HR IV 04/04/25 22:00 04/06/25 08:29 12.5 MLS/HR Hydromorphone HCl 0.5 mg Q6HPRN PRN IV 04/04/25 20:15 04/06/25 08:46 0.5 MG Albuterol 2.5 mg Q6HPRN PRN NEB 04/04/25 20:15 04/06/25 07:15 2.5 MG Temazepam 15 mg QHSP PRN PO 04/04/25 20:15 Ondansetron HCl 4 mg Q4HP PRN IV 04/04/25 20:15 04/05/25 09:26 4 MG Acetaminophen 650 mg Q6HP PRN PO 04/04/25 20:15 04/05/25 06:29 650 MG Oxycodone/ Acetaminophen 1 tab Q4HP PRN PO 04/05/25 07:15 04/05/25 19:02 1 TAB Laboratory Results Laboratory Tests 04/06/25 05:28 Chemistry Test 04/06/25 05:28 Calcium Level 8.6 mg/dL (8.7-10.4) L Urinalysis Test 04/04/25 16:19 Urine Color Yellow (Yellow) Urine Clarity Turbid (Clear) H Urine pH 6.0 (5.0-9.0) Urine Specific [place] 1.031 (1.001-1.035) Urine Protein 1+ (Negative) H Urine Ketones 1+ (Negative) H Urine Blood 3+ /uL (Negative) H Urine Nitrite Negative (Negative) Urine Bilirubin Negative (Negative) Urine Urobilinogen Normal mg/dL (Negative) Urine Leukocyte Esterase Trace /uL (Negative) Urine RBC 417 /hpf (0 - 4) Urine Microscopic WBC 10 /HPF (0-5) H Urine Squamous Epithelial Cells Many /hpf (<5) Urine Bacteria Few /hpf (None Seen) H Urine Mucus Few (None Seen) Urine Yeast (Budding) Occasional /hpf (None Urine Glucose Normal mg/dL (Normal) Microbiology Microbiology Date/Time Source Procedure Growth Status 04/04/25 21:19 Chest Gram Stain - Final Resulted 04/04/25 21:19 Chest Wound Culture - Preliminary Resulted 04/04/25 15:31 Blood Blood Culture - Preliminary Resulted Labs and/or images reviewed: Labs reviewed by me Assessment/Plan Assessment/Plan Acute on chronic respiratory failure COPD exacerbation ? Metastatic disease History of breast cancer Hypokalemia Multiple infected open wounds across chest Plan Continue current management. Continue with Clindamycin and cefepime IV Per patient, she had treatment at [facility] for breast cancer with chemotherapy. However, the doctor said she didn't need mastectomy. 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 Waiting for head waiter to see patient. Wound consult Wound cultures Pain management with [place]. Per patient she will see her oncologist at [facility] again. This medical document was created using an electronic medical record system with M*M [employer] direct computerized dictation system. Although this document has been carefully reviewed, there may still be some phonetic and typographical errors. These areas are purely typographical due to imperfections of the software programs, and do not reflect any compromise in the patient's medical care. Plan discussed with: Patient My Orders Orders - JUAN CAST MD Procedure Category Date Status Time Mrsa Screen MAGGI 04/05/25 In Process 15:17 Cleanse Wound With MAYRA 04/05/25 In Process Wound Clean 18:44 * Dietary Consult CONS 04/05/25 Transmitted 19:01 Complete Blood Count LAB 04/07/25 Verified 05:00 Complete Blood Count LAB 04/08/25 Verified 05:00 Complete Blood Count LAB 04/09/25 Verified 05:00 Complete Blood Count LAB 04/10/25 Verified 05:00 Basic Metabolic Panel LAB 04/07/25 Verified 05:00 Basic Metabolic Panel LAB 04/08/25 Verified 05:00 Basic Metabolic Panel LAB 04/09/25 Verified 05:00 Basic Metabolic Panel LAB 04/10/25 Verified 05:00 Date of Service: Apr 06, 2025 Billing Provider: JUAN CAST MD Common Visit Codes: [id number] INP/OBS CARE(HIGH) JUAN CAST MD Apr 06, 2025 10:49
[2025-04-06] MEDS: POTASSIUM CHL 20 Meq TABLET PO ONE (15:29)
[2025-04-06] MEDS: ALBUTEROL SULF 2.5 MG/0.5ML(0.5%) NEB SOLN NEB SCH (22:00)
[2025-04-06] MEDS: IPRATROPIUM BROM 0.5 MG/2.5ML INH SOL NEB SCH (22:00)
--- NOTE | 2025-04-06 22:39 | DVHINCON2 ---
Date of service: Apr 06, [address] Scruggs Reason for Consultation Acute on chronic hypoxic respiratory failure, COPD exacerbation. History of Present Illness A 65-year-old woman with past medical history of COPD and breast cancer who presented to ED on 04/04/25 for evaluation of shortness of breath. Patient reports a history of breast cancer, currently completing radiation therapy with [facility]. She reports developing open wounds across her chest that have become infected. She has home health treating her wounds on a daily basis. Pt states chemotherapy is currently on hold due to infected wounds. Patient reported developing worsening shortness of breath over the past one day prior to presentation. She had a scan of her chest two weeks ago and is awaiting results. Denied any chest pain or other acute complaints. Patient was admitted for further care. Pulmonary consultation is requested for evaluation and management due to acute on chronic hypoxic respiratory failure and COPD exacerbation. Review of Systems: 14-point review of systems negative unless otherwise noted above. Past Medical History COPD, breast cancer. Past Surgical History Appendectomy, Medications: Reviewed. Allergies: Meperidine Morphine. Hydrocodone Family History No family history of premature CAD. No family history of lung disorders. Social History: Smoker. Smokes <1 pack per day No alcohol or illicit drug use. Family History: Patient reports no known family medical history. Allergies: Coded Allergies: Meperidine (Verified Allergy, Unknown, 01/07/18) Morphine (Verified Allergy, Unknown, 01/07/18) Hydrocodone (Verified Adverse Reaction, Mild, itching, 04/05/25) pt refused this meds due to adverse reaction Home Meds Active Scripts Clindamycin Hcl (Clindamycin Hcl) 300 Mg Cap, 1 CAP PO TID, #21 CAP Prov:JUAN SCRUGGS MD 04/09/25 Amoxicillin & Pot Clavulanate (AUGMENTIN TABLET) 875 Mg Tb, 875 MG PO BID, #20 TAB Prov:JUAN SCRUGGS MD 04/09/25 Fentanyl (Fentanyl) 25 Mcg/Hr Dis, 25 MCG TD every 72 hours PRN, #4 DIS Prov:JUAN SCRUGGS MD 04/09/25 Reported Medications Oxycodone Hcl (OxyCONTIN ER Tablet) 10 Mg Tb, 1 TAB PO BID 04/05/25 Elszghcteyp-Dnenthvubhyo-Igtfc (Trelegy Ellipta 100-62.5-25 Mcg/INH) 1 Aer Aer, 1 PUFF INH DAILY 04/05/25 Current Medications Current Medications Medications (Trade) Dose Ordered Sig/Efren Route PRN Reason Start Time Stop Time Status Last Admin Albuterol (Ventolin Medneb) 2.5 mg Q4HR NEB 04/06/25 22:00 Ipratropium [place] (Atrovent Medneb) 0.5 mg Q4HR NEB 04/06/25 22:00 Vital Signs Vital Signs Date Time Temp Pulse Resp B/P (MAP) Pulse Ox O2 Delivery O2 Flow Rate FiO2 04/06/25 21:00 97.5 88 18 149/75 (99) 97 97.5 04/06/25 20:20 Nasal Cannula 6.0 04/06/25 20:20 44 Physical Exam Gen.: Patient lying in bed in no apparent distress. On supplemental oxygen. Head: Normocephalic, atraumatic. Eyes: EOMI/PERRLA. Ears: Normal hearing. Normal anatomy. Neck/trachea: Trachea midline, supple. Nose: Normal external anatomy. Mouth: Moist mucous membranes. Chest: Decreased air entry bilaterally. No wheezing or rhonchi. Cardiovascular: Positive S1, positive S2. Regular rate and rhythm. Abdomen: Positive bowel sounds in all 4 quadrants. Soft, non-tender, non- distended. : Deferred. Rectal: Deferred. Skin: Warm, dry. Intact. Extremities: 2+ radial pulses bilaterally. No lower extremity edema. Neuro: Awake, alert, oriented x3. No gross motor or sensory deficits. Cranial nerves II through XII intact. Gait not assessed. Labs/Diagnostic Data Labs Test 04/06/25 05:28 04/05/25 04:53 04/04/25 18:47 04/04/25 17:13 Range/Units White Blood Count 12.8 #H 4.4-10.8 10^3/uL Red Blood Count 3.72 L 4.0-5.20 10^6/uL Hemoglobin 10.0 L 12.2-16.2 g/dL Hematocrit 30.2 L 36.0-46.0 % Mean Corpuscular Volume 81.2 80.0-100.0 fL Mean Corpuscular Hemoglobin 26.8 L 28.0-32.0 pg Mean Corpuscular Hemoglobin Concent 33.1 32.0-36.0 g/dL Red Cell Distribution Width 16.6 H 11.8-14.3 % Platelet Count 214 140-450 10^3/uL Mean Platelet Volume 6.7 L 6.9-10.8 fL Neutrophils (%) (Auto) 88.9 H 37.0-80.0 % Lymphocytes (%) (Auto) 5.6 L 10.0-50.0 % Monocytes (%) (Auto) 5.1 0.0-12.0 % Eosinophils (%) (Auto) 0.3 0.0-7.0 % Basophils (%) (Auto) 0.1 0.0-2.0 % Neutrophils # (Auto) 11.4 H 1.6-8.6 10 ^3/uL Lymphocytes # (Auto) 0.7 0.4-5.4 10 ^3/uL Monocytes # (Auto) 0.6 0-1.3 10 ^3/uL Eosinophils # (Auto) 0 0-0.8 10 ^3/uL Basophils # (Auto) 0 0-0.2 10 ^3/uL Nucleated Red Blood Cells 0.0 % Sodium Level 139 136-145 mmol/L Potassium Level 3.2 L 3.5-5.1 mmol/L Chloride Level 100 98-107 mmol/L Carbon Dioxide Level 29 20-31 mmol/L Anion Gap 10 5-15 Blood Urea Nitrogen 22 9-23 mg/dL Creatinine 0.52 L 0.550-1.02 mg/dL Glomerular Filtration Rate Calc 102 >90 mL/min BUN/Creatinine Ratio 42.3 H 10.0-20.0 Serum Glucose 101 74-106 mg/dL Calcium Level 8.6 L 8.7-10.4 mg/dL Total Bilirubin 0.4 0.2-1.0 mg/dL Aspartate Amino Transferase (AST) 48 H 13-40 U/L Alanine Aminotransferase (ALT) 14 7-40 U/L Alkaline Phosphatase 366 H 46-116 U/L Total Protein 6.6 5.7-8.2 g/dL Albumin 3.4 3.2-4.8 g/dL Troponin I High Sensitivity 23 </=34 ng/L Lactic Acid Level 2.3 *H 0.4-2.0 mmol/L Test 04/04/25 16:19 04/04/25 15:31 04/04/25 11:00 Range/Units Urine Color Yellow Yellow Urine Clarity Turbid H Clear Urine pH 6.0 5.0-9.0 Urine Specific [place] 1.031 1.001-1.035 Urine Protein 1+ H Negative Urine Ketones 1+ H Negative Urine Blood 3+ H Negative /uL Urine Nitrite Negative Negative Urine Bilirubin Negative Negative Urine Urobilinogen Normal Negative mg/dL Urine Leukocyte Esterase Trace Negative /uL Urine RBC 417 0 - 4 /hpf Urine Microscopic WBC 10 H 0-5 /HPF Urine Squamous Epithelial Cells Many <5 /hpf Urine Bacteria Few H None Seen /hpf Urine Mucus Few None Seen Urine Yeast (Budding) Occasional None Seen /hpf Urine Glucose Normal Normal mg/dL Platelet Estimate Adequate Anisocytosis (manual) Slight Stomatocytes Few B-Type Natriuretic Peptide 88.04 0-100 pg/mL Influenza Type A Antigen Negative Negative Influenza Type B Antigen Negative Negative SARS-CoV-2 Antigen (Rapid) Negative NEGATIVE Microbiology Date/Time Source Procedure Growth Status 04/05/25 15:17 Nose MRSA Screen - Final Complete 04/04/25 15:31 Blood Blood Culture - Preliminary Resulted Assessment Impression: Acute on chronic hypoxic respiratory failure Dependence on supplemental oxygen Acute exacerbation of COPD Metastatic disease Breast cancer Multiple infected wounds. Nicotine dependence Plan: Supplemental oxygen Titrate to keep O2 sats above 92%. Currently on 6 LPM NC Taper O2 as tolerated. Continue bronchodilators. Continue antibiotics Wound care. Follow up Oncology recs Monitor renal function. Monitor electrolytes. Supplement as necessary. Supplement potassium Monitor ins and outs. Smoking cessation discussed greater than 10 minutes. DVT prophylaxis. Prognosis: Poor given patient's multiple co-morbidities. Rest of plan per hospitalist and other consultants. Thank you, Dr. Scruggs, for allowing me to participate in this patient's care. Further recommendations will depend on the patient's clinical course. Please do not hesitate to contact me if you have any questions or concerns. This medical document was created using an electronic medical record system with [employer] system. Although these documentations are being carefully reviewed, there may still be some phonetic and typographical changes. The errors are purely typographical, due to imperfection on the software program, and do not reflect any compromise in the patient's medical care. Plan discussed with: Patient, Other (TREVON Clemens/Dr. Scurggs) Visit Coding Pulmonary Billing Provider: PETER BUSH MD Date of Service if different f: Apr 06, 2025 Common Visit Codes: [id number] INP/OBS CARE (HIGH) PETER BUSH MD Apr 06, 2025 22:38
[2025-04-07] VITALS (16 sets, daily range): BP systolic 123–143; BP diastolic 72–83; PULSE 81–92; RESP 14–20; TEMP 97.5–98.8; O2SAT 90–97
[2025-04-07 06:05] LABS: Anion Gap 8 (5-15); Carbon Dioxide 29 mmol/L (20-31); Chloride 100 mmol/L (98-107); Hematocrit 30.6 % (36.0-46.0); Hemoglobin 10.2 g/dL (12.2-16.2); Mean Corpuscular Hemoglobin 27.0 pg (28.0-32.0); Mean Corpuscular Volume 81.1 fL (80.0-100.0); Nucleated Red Blood Cells % 0.0 %; Potassium 4.2 mmol/L (3.5-5.1); Sodium 137 mmol/L (136-145)
[2025-04-07 06:06] LABS: Calcium 9.0 mg/dL (8.7-10.4)
[2025-04-07 06:11] LABS: BUN/Creatinine Ratio 29.8 (10.0-20.0); Blood Urea Nitrogen 14 mg/dL (9-23); Glucose 91 mg/dL (74-106)
--- NOTE | 2025-04-07 12:23 | DVHPN2 ---
Subjective The patient seen and examined at bedside. Feel better but still SOB. Still complains of pain. Reviewed: Care Plan, H&P, Labs, Medications, Previous Orders, Radiology Changes from previous H/P or p: No Changes Objective Vitals Vital Signs Date Time Temp Pulse Resp B/P (MAP) Pulse Ox O2 Delivery O2 Flow Rate FiO2 04/07/25 10:05 85 14 95 04/07/25 09:57 Nasal Cannula* 4 36 04/07/25 09:00 98.0 127/78 (94) 98.0 Intake/Output Intake and Output 04/07/25 07:00 Intake Total 908 ml Output Total 500 ml Balance 408 ml Intake Oral 808 ml IV Total 100 ml Output Urine Total 500 ml # Voids 2 # Bowel Movements 1 General Appearance: Alert, Oriented X3, Cooperative, mild distress HEENT: Atraumatic, PERRLA, EOMI, Mucous membr. moist/pink Neck: Supple Lungs: Clear to auscultation, Normal air movement Cardiovascular: Regular rate, Normal S1, Normal S2, No murmurs, Gallops, Rubs Abdomen: Normal bowel sounds, Soft, No tenderness Neuro: Cranial nerves 3-12 NL Psych/Mental Status: Mental status NL Medications Current Medications Medications Dose Ordered Sig/Efren Route Start Time Stop Time Status Last Admin Dose Admin Clindamycin Phosphate 50 ml @ 50 mls/hr Q8HR IV 04/04/25 22:00 04/07/25 07:06 50 MLS/HR Cefepime HCl 50 ml @ 12.5 mls/hr Q12HR IV 04/04/25 22:00 04/07/25 08:34 12.5 MLS/HR Hydromorphone HCl 0.5 mg Q6HPRN PRN IV 04/04/25 20:15 04/07/25 08:35 0.5 MG Temazepam 15 mg QHSP PRN PO 04/04/25 20:15 Ondansetron HCl 4 mg Q4HP PRN IV 04/04/25 20:15 04/05/25 09:26 4 MG Acetaminophen 650 mg Q6HP PRN PO 04/04/25 20:15 04/05/25 06:29 650 MG Oxycodone/ Acetaminophen 1 tab Q4HP PRN PO 04/05/25 07:15 04/07/25 11:51 1 TAB Albuterol 2.5 mg Q4HR NEB 04/06/25 22:00 04/07/25 09:57 2.5 MG Ipratropium [place] 0.5 mg Q4HR NEB 04/06/25 22:00 04/07/25 09:57 0.5 MG Laboratory Results Laboratory Tests 04/07/25 05:25 Chemistry Test 04/07/25 05:25 Calcium Level 9.0 mg/dL (8.7-10.4) Urinalysis Test 04/04/25 16:19 Urine Color Yellow (Yellow) Urine Clarity Turbid (Clear) H Urine pH 6.0 (5.0-9.0) Urine Specific [place] 1.031 (1.001-1.035) Urine Protein 1+ (Negative) H Urine Ketones 1+ (Negative) H Urine Blood 3+ /uL (Negative) H Urine Nitrite Negative (Negative) Urine Bilirubin Negative (Negative) Urine Urobilinogen Normal mg/dL (Negative) Urine Leukocyte Esterase Trace /uL (Negative) Urine RBC 417 /hpf (0 - 4) Urine Microscopic WBC 10 /HPF (0-5) H Urine Squamous Epithelial Cells Many /hpf (<5) Urine Bacteria Few /hpf (None Seen) H Urine Mucus Few (None Seen) Urine Yeast (Budding) Occasional /hpf (None Urine Glucose Normal mg/dL (Normal) Microbiology Microbiology Date/Time Source Procedure Growth Status 04/05/25 15:17 Nose MRSA Screen - Final Complete 04/04/25 15:31 Blood Blood Culture - Preliminary Resulted Labs and/or images reviewed: Labs reviewed by me Assessment/Plan Assessment/Plan Acute on chronic respiratory failure COPD exacerbation ? Metastatic disease History of breast cancer Hypokalemia Multiple infected open wounds across chest Plan Continue current management. Continue with Clindamycin and cefepime IV Per patient, she had treatment at [facility] for breast cancer with chemotherapy. However, the doctor said she didn't need mastectomy. 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 Waiting for planer stone to see patient. Wound consult Wound cultures Pain management with [place]. Per patient she will see her oncologist at [facility] on thursday to start salvage chemo. I will increase percocet to 10/325 one tab q6hPRN for break through pain I will increase dilaudid 1mg IV q4h PRN for moderate and severe pain. This medical document was created using an electronic medical record system with [employer] direct computerized dictation system. Although this document has been carefully reviewed, there may still be some phonetic and typographical errors. These areas are purely typographical due to imperfections of the software programs, and do not reflect any compromise in the patient's medical care. Plan discussed with: Patient Date of Service: Apr 07, 2025 Billing Provider: JUAN CAST MD Common Visit Codes: [id number] INP/OBS CARE(HIGH) JUAN CAST MD Apr 07, 2025 12:23
[2025-04-07] MEDS: HYDROmorphone HCL 2 MG/ML VL/or syr IV PRN (17:05)
[2025-04-07] MEDS: predniSONE 20 MG TAB PO SCH (21:39)
[2025-04-07] MEDS: OXYCODONE W/ ACETAMINOPHEN 5/325MG TABLET PO PRN (21:40)
[2025-04-07] MEDS: BUDESONIDE (INHALATION) 0.5 MG/2 ML NEB NEB SCH (22:11)
--- NOTE | 2025-04-07 22:39 | DVHPN2 ---
Subjective DOS: 04/07/2025 Patient seen and examined at bedside. Remains on supplemental oxygen Overnight events reviewed. Reviewed: Care Plan, H&P, Labs, Medications, Previous Orders, Radiology Changes from previous H/P or p: No Changes Objective Vitals Vital Signs Date Time Temp Pulse Resp B/P (MAP) Pulse Ox O2 Delivery O2 Flow Rate FiO2 04/07/25 22:00 82 18 96 04/07/25 21:00 141/78 3.0 04/07/25 20:00 Nasal Cannula* 32 04/07/25 13:00 97.5 97.5 Intake/Output Intake and Output 04/07/25 07:00 Intake Total 908 ml Output Total 500 ml Balance 408 ml Intake Oral 808 ml IV Total 100 ml Output Urine Total 500 ml # Voids 2 # Bowel Movements 1 General Appearance: Alert, Oriented X3, Cooperative, No acute distress HEENT: Atraumatic, PERRLA, EOMI, Mucous membr. moist/pink Neck: Supple Lungs: Other (Decreased air entry bilaterally. Wheezing present. No rhonchi) Cardiovascular: Regular rate, Normal S1, Normal S2, No murmurs, Gallops, Rubs Abdomen: Normal bowel sounds, Soft, No tenderness Neuro: Cranial nerves 3-12 NL Psych/Mental Status: Mental status NL Medications Current Medications Medications Dose Ordered Sig/Efren Route Start Time Stop Time Status Last Admin Dose Admin Clindamycin Phosphate 50 ml @ 50 mls/hr Q8HR IV 04/04/25 22:00 04/07/25 21:52 50 MLS/HR Cefepime HCl 50 ml @ 12.5 mls/hr Q12HR IV 04/04/25 22:00 04/07/25 22:10 12.5 MLS/HR Temazepam 15 mg QHSP PRN PO 04/04/25 20:15 Ondansetron HCl 4 mg Q4HP PRN IV 04/04/25 20:15 04/05/25 09:26 4 MG Acetaminophen 650 mg Q6HP PRN PO 04/04/25 20:15 04/05/25 06:29 650 MG Albuterol 2.5 mg Q4HR NEB 04/06/25 22:00 04/07/25 22:11 2.5 MG Ipratropium [place] 0.5 mg Q4HR NEB 04/06/25 22:00 04/07/25 22:11 0.5 MG Hydromorphone HCl 1 mg Q6HP PRN IV 04/07/25 13:00 04/07/25 17:05 1 MG Oxycodone/ Acetaminophen 2 tab Q4HP PRN PO 04/07/25 13:00 04/07/25 21:40 2 TAB Prednisone 20 mg BID PO 04/07/25 22:00 04/07/25 21:39 20 MG Budesonide 0.5 mg BID NEB 04/07/25 22:00 04/07/25 22:11 0.5 MG Laboratory Results Laboratory Tests 04/07/25 05:25 Chemistry Test 04/07/25 05:25 Calcium Level 9.0 mg/dL (8.7-10.4) Urinalysis Test 04/04/25 16:19 Urine Color Yellow (Yellow) Urine Clarity Turbid (Clear) H Urine pH 6.0 (5.0-9.0) Urine Specific [place] 1.031 (1.001-1.035) Urine Protein 1+ (Negative) H Urine Ketones 1+ (Negative) H Urine Blood 3+ /uL (Negative) H Urine Nitrite Negative (Negative) Urine Bilirubin Negative (Negative) Urine Urobilinogen Normal mg/dL (Negative) Urine Leukocyte Esterase Trace /uL (Negative) Urine RBC 417 /hpf (0 - 4) Urine Microscopic WBC 10 /HPF (0-5) H Urine Squamous Epithelial Cells Many /hpf (<5) Urine Bacteria Few /hpf (None Seen) H Urine Mucus Few (None Seen) Urine Yeast (Budding) Occasional /hpf (None Urine Glucose Normal mg/dL (Normal) Microbiology Microbiology Date/Time Source Procedure Growth Status 04/05/25 15:17 Nose MRSA Screen - Final Complete 04/04/25 15:31 Blood Blood Culture - Preliminary Pseudomonas aeruginosa Resulted Assessment/Plan Assessment/Plan Impression: Acute on chronic hypoxic respiratory failure Dependence on supplemental oxygen Acute exacerbation of COPD Metastatic disease Breast cancer Multiple infected wounds. Nicotine dependence Events: Remains on supplemental oxygen, 3 LPM [place] Improving O2 requirements Continue to taper O2 as tolerated Continue bronchodilators Continue antibiotics Wheezing on exam - start prednisone and Pulmicort Wound care Pain control Labs and imaging reviewed. Rest of plan as noted below. Plan: Supplemental oxygen Titrate to keep O2 sats above 92%. Continue bronchodilators. Continue antibiotics Wound care. Follow up Oncology recs Monitor renal function. Monitor electrolytes. Supplement as necessary. Supplement potassium Monitor ins and outs. Smoking cessation discussed greater than 10 minutes. DVT prophylaxis. Prognosis: Poor given patient's multiple co-morbidities. Rest of plan per hospitalist and other consultants. Thank you, Dr. Scruggs, for allowing me to participate in this patient's care. Further recommendations will depend on the patient's clinical course. Please do not hesitate to contact me if you have any questions or concerns. This medical document was created using an electronic medical record system with [employer] dictation system. Although these documentations are being carefully reviewed, there may still be some phonetic and typographical changes. The errors are purely typographical, due to imperfection on the software program, and do not reflect any compromise in the patient's medical care Plan discussed with: Patient, Other (RN Jayleen) My Orders Orders - PETER BUSH MD Procedure Category Date Status Time Prednisone Tablet PHA 04/07/25 In Process 22:00 Budesonide PHA 04/07/25 In Process (Inhalation) 22:00 Visit Coding Pulmonary Billing Provider: PETER BUSH MD Date of Service if different f: Apr 07, 2025 Common Visit Codes: [id number] INP/OBS CARE(HIGH) PETER BUSH MD Apr 07, 2025 22:39
[2025-04-08] VITALS (15 sets, daily range): BP systolic 106–165; BP diastolic 73–85; PULSE 74–98; RESP 16–18; TEMP 97.8–98.5; O2SAT 91–99
[2025-04-08 07:59] LABS: Hematocrit 28.7 % (36.0-46.0); Hemoglobin 9.2 g/dL (12.2-16.2); Mean Corpuscular Hemoglobin 26.6 pg (28.0-32.0); Mean Corpuscular Volume 82.5 fL (80.0-100.0); Nucleated Red Blood Cells % 0.0 %
[2025-04-08 08:21] LABS: Potassium 4.0 mmol/L (3.5-5.1)
[2025-04-08 08:22] LABS: Anion Gap 10 (5-15); Carbon Dioxide 26 mmol/L (20-31)
[2025-04-08 08:27] LABS: BUN/Creatinine Ratio 16.4 (10.0-20.0)
[2025-04-08 08:29] LABS: Blood Urea Nitrogen 9 mg/dL (9-23); Calcium 8.2 mg/dL (8.7-10.4); Chloride 91 mmol/L (98-107); Glucose 371 mg/dL (74-106); Sodium 127 mmol/L (136-145)
--- NOTE | 2025-04-08 13:31 | DVHPN2 ---
Subjective The patient seen and examined at bedside. Feel better but still SOB. Still complains of severe pain despite on Dilaudid and [place]. Reviewed: Care Plan, H&P, Labs, Medications, Previous Orders, Radiology Changes from previous H/P or p: No Changes Objective Vitals Vital Signs Date Time Temp Pulse Resp B/P (MAP) Pulse Ox O2 Delivery O2 Flow Rate FiO2 04/08/25 13:06 92 17 165/85 04/08/25 13:00 97.8 92 97.8 04/08/25 10:14 Nasal Cannula* 4 36 Intake/Output Intake and Output 04/08/25 07:00 Intake Total 1437 ml Output Total 750 ml Balance 687 ml Intake Oral 1137 ml IV Total 300 ml Output Urine Total 750 ml # Voids 2 General Appearance: Alert, Oriented X3, Cooperative, No acute distress HEENT: Atraumatic, PERRLA, EOMI, Mucous membr. moist/pink Neck: Supple Lungs: Other (Decreased air entry bilaterally. Wheezing present. No rhonchi) Cardiovascular: Regular rate, Normal S1, Normal S2, No murmurs, Gallops, Rubs Abdomen: Normal bowel sounds, Soft, No tenderness Neuro: Cranial nerves 3-12 NL Psych/Mental Status: Mental status NL Medications Current Medications Medications Dose Ordered Sig/Efren Route Start Time Stop Time Status Last Admin Dose Admin Clindamycin Phosphate 50 ml @ 50 mls/hr Q8HR IV 04/04/25 22:00 04/08/25 05:35 50 MLS/HR Cefepime HCl 50 ml @ 12.5 mls/hr Q12HR IV 04/04/25 22:00 04/08/25 09:55 12.5 MLS/HR Temazepam 15 mg QHSP PRN PO 04/04/25 20:15 Ondansetron HCl 4 mg Q4HP PRN IV 04/04/25 20:15 04/05/25 09:26 4 MG Acetaminophen 650 mg Q6HP PRN PO 04/04/25 20:15 04/05/25 06:29 650 MG Albuterol 2.5 mg Q4HR NEB 04/06/25 22:00 04/08/25 10:12 2.5 MG Ipratropium [place] 0.5 mg Q4HR NEB 04/06/25 22:00 04/08/25 10:12 0.5 MG Hydromorphone HCl 1 mg Q6HP PRN IV 04/07/25 13:00 04/08/25 13:06 1 MG Oxycodone/ Acetaminophen 2 tab Q4HP PRN PO 04/07/25 13:00 04/07/25 21:40 2 TAB Prednisone 20 mg BID PO 04/07/25 22:00 04/08/25 09:55 20 MG Budesonide 0.5 mg BID NEB 04/07/25 22:00 04/08/25 10:12 0.5 MG Laboratory Results Laboratory Tests 04/08/25 05:47 Chemistry Test 04/08/25 05:47 Calcium Level 8.2 mg/dL (8.7-10.4) L Urinalysis Test 04/04/25 16:19 Urine Color Yellow (Yellow) Urine Clarity Turbid (Clear) H Urine pH 6.0 (5.0-9.0) Urine Specific [place] 1.031 (1.001-1.035) Urine Protein 1+ (Negative) H Urine Ketones 1+ (Negative) H Urine Blood 3+ /uL (Negative) H Urine Nitrite Negative (Negative) Urine Bilirubin Negative (Negative) Urine Urobilinogen Normal mg/dL (Negative) Urine Leukocyte Esterase Trace /uL (Negative) Urine RBC 417 /hpf (0 - 4) Urine Microscopic WBC 10 /HPF (0-5) H Urine Squamous Epithelial Cells Many /hpf (<5) Urine Bacteria Few /hpf (None Seen) H Urine Mucus Few (None Seen) Urine Yeast (Budding) Occasional /hpf (None Urine Glucose Normal mg/dL (Normal) Microbiology Microbiology Date/Time Source Procedure Growth Status 04/05/25 15:17 Nose MRSA Screen - Final Complete 04/04/25 15:31 Blood Blood Culture - Preliminary Pseudomonas aeruginosa Resulted Labs and/or images reviewed: Labs reviewed by me Assessment/Plan Assessment/Plan Acute on chronic respiratory failure COPD exacerbation ? Metastatic disease History of breast cancer Hypokalemia Multiple infected open wounds across chest Plan Continue current management. Continue with Clindamycin and cefepime IV Per patient, she had treatment at [facility] for breast cancer with chemotherapy. However, the doctor said she didn't need mastectomy. 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 Wound consult Wound cultures Pain management with [place]. Per patient she will see her oncologist at [facility] on thursday to start salvage chemo. I will increase percocet to 10/325 one tab q6hPRN for break through pain I will increase dilaudid 1mg IV q4h PRN for moderate and severe pain. I will add fentanyl patch 25mcg one patch q 72 hours. SW for wound care /homehealth Discharge planning. This medical document was created using an electronic medical record system with [employer] direct computerized dictation system. Although this document has been carefully reviewed, there may still be some phonetic and typographical errors. These areas are purely typographical due to imperfections of the software programs, and do not reflect any compromise in the patient's medical care. Plan discussed with: Patient Date of Service: Apr 08, 2025 Billing Provider: JUAN CAST MD Common Visit Codes: [id number] INP/OBS CARE(HIGH) JUAN CAST MD Apr 08, 2025 13:31
[2025-04-08] MEDS: fentaNYL 25MCG/HR 25 MCG/HR PAT TD SCH (14:00)
--- NOTE | 2025-04-08 22:26 | DVHPN2 ---
Subjective DOS: 04/08/2025 Patient seen and examined at bedside. Remains on supplemental oxygen Overnight events reviewed. Reviewed: Care Plan, H&P, Labs, Medications, Previous Orders, Radiology Changes from previous H/P or p: No Changes Objective Vitals Vital Signs Date Time Temp Pulse Resp B/P (MAP) Pulse Ox O2 Delivery O2 Flow Rate FiO2 04/08/25 18:59 92 18 99 04/08/25 18:49 Nasal Cannula* 4 36 04/08/25 17:00 97.8 162/81 (108) 97.8 Intake/Output Intake and Output 04/08/25 07:00 Intake Total 1437 ml Output Total 750 ml Balance 687 ml Intake Oral 1137 ml IV Total 300 ml Output Urine Total 750 ml # Voids 2 General Appearance: Alert, Oriented X3, Cooperative, No acute distress HEENT: Atraumatic, PERRLA, EOMI, Mucous membr. moist/pink Neck: Supple Lungs: Other (Decreased air entry bilaterally. Wheezing present. No rhonchi) Cardiovascular: Regular rate, Normal S1, Normal S2, No murmurs, Gallops, Rubs Abdomen: Normal bowel sounds, Soft, No tenderness Neuro: Cranial nerves 3-12 NL Psych/Mental Status: Mental status NL Medications Current Medications Medications Dose Ordered Sig/Efren Route Start Time Stop Time Status Last Admin Dose Admin Clindamycin Phosphate 50 ml @ 50 mls/hr Q8HR IV 04/04/25 22:00 04/08/25 21:33 50 MLS/HR Cefepime HCl 50 ml @ 12.5 mls/hr Q12HR IV 04/04/25 22:00 04/08/25 09:55 12.5 MLS/HR Temazepam 15 mg QHSP PRN PO 04/04/25 20:15 Ondansetron HCl 4 mg Q4HP PRN IV 04/04/25 20:15 04/05/25 09:26 4 MG Acetaminophen 650 mg Q6HP PRN PO 04/04/25 20:15 04/05/25 06:29 650 MG Albuterol 2.5 mg Q4HR NEB 04/06/25 22:00 04/08/25 22:24 2.5 MG Ipratropium [place] 0.5 mg Q4HR NEB 04/06/25 22:00 04/08/25 22:24 0.5 MG Hydromorphone HCl 1 mg Q6HP PRN IV 04/07/25 13:00 04/08/25 13:06 1 MG Oxycodone/ Acetaminophen 2 tab Q4HP PRN PO 04/07/25 13:00 04/08/25 17:22 2 TAB Prednisone 20 mg BID PO 04/07/25 22:00 04/08/25 21:33 20 MG Budesonide 0.5 mg BID NEB 04/07/25 22:00 04/08/25 18:48 0.5 MG Fentanyl 25 mcg Q72H TD 04/08/25 14:00 04/08/25 14:00 25 MCG Laboratory Results Laboratory Tests 04/08/25 05:47 Chemistry Test 04/08/25 05:47 Calcium Level 8.2 mg/dL (8.7-10.4) L Urinalysis Test 04/04/25 16:19 Urine Color Yellow (Yellow) Urine Clarity Turbid (Clear) H Urine pH 6.0 (5.0-9.0) Urine Specific [place] 1.031 (1.001-1.035) Urine Protein 1+ (Negative) H Urine Ketones 1+ (Negative) H Urine Blood 3+ /uL (Negative) H Urine Nitrite Negative (Negative) Urine Bilirubin Negative (Negative) Urine Urobilinogen Normal mg/dL (Negative) Urine Leukocyte Esterase Trace /uL (Negative) Urine RBC 417 /hpf (0 - 4) Urine Microscopic WBC 10 /HPF (0-5) H Urine Squamous Epithelial Cells Many /hpf (<5) Urine Bacteria Few /hpf (None Seen) H Urine Mucus Few (None Seen) Urine Yeast (Budding) Occasional /hpf (None Urine Glucose Normal mg/dL (Normal) Microbiology Microbiology Date/Time Source Procedure Growth Status 04/05/25 15:17 Nose MRSA Screen - Final Complete 04/04/25 15:31 Blood Blood Culture - Preliminary Pseudomonas aeruginosa Resulted Assessment/Plan Assessment/Plan Impression: Acute on chronic hypoxic respiratory failure Dependence on supplemental oxygen Acute exacerbation of COPD Metastatic disease Breast cancer Multiple infected wounds. Nicotine dependence Events: Remains on supplemental oxygen, 3 LPM [place] Improving O2 requirements Continue to taper O2 as tolerated Continue bronchodilators Continue antibiotics Incentive spirometry Wheezing - continue prednisone and Pulmicort Wound care Pain control Labs and imaging reviewed. Rest of plan as noted below. Plan: Supplemental oxygen Titrate to keep O2 sats above 92%. Continue bronchodilators. Continue antibiotics Wound care. Follow up Oncology recs Monitor renal function. Monitor electrolytes. Supplement as necessary. Supplement potassium Monitor ins and outs. Smoking cessation discussed greater than 10 minutes. DVT prophylaxis. Prognosis: Poor given patient's multiple co-morbidities. Rest of plan per hospitalist and other consultants. Thank you, Dr. Scruggs, for allowing me to participate in this patient's care. Further recommendations will depend on the patient's clinical course. Please do not hesitate to contact me if you have any questions or concerns. This medical document was created using an electronic medical record system with [employer] dictation system. Although these documentations are being carefully reviewed, there may still be some phonetic and typographical changes. The errors are purely typographical, due to imperfection on the software program, and do not reflect any compromise in the patient's medical care Plan discussed with: Patient, Other (TREVON Dhillon) Visit Coding Pulmonary Billing Provider: PETER BUSH MD Date of Service if different f: Apr 08, 2025 Common Visit Codes: [id number] INP/OBS CARE(HIGH) PETER BUSH MD Apr 08, 2025 22:26
[2025-04-09] VITALS (13 sets, daily range): BP systolic 133–142; BP diastolic 63–81; PULSE 81–94; RESP 16–18; TEMP 36.8; O2SAT 94–100
[2025-04-09 06:45] LABS: Hematocrit 31.5 % (36.0-46.0); Hemoglobin 10.6 g/dL (12.2-16.2); Mean Corpuscular Hemoglobin 27.3 pg (28.0-32.0); Mean Corpuscular Volume 80.9 fL (80.0-100.0); Nucleated Red Blood Cells % 0.0 %
[2025-04-09 06:55] LABS: Anion Gap 11 (5-15); Carbon Dioxide 28 mmol/L (20-31); Potassium 4.5 mmol/L (3.5-5.1)
[2025-04-09 06:56] LABS: Calcium 9.1 mg/dL (8.7-10.4)
[2025-04-09 07:01] LABS: BUN/Creatinine Ratio 24.0 (10.0-20.0); Blood Urea Nitrogen 12 mg/dL (9-23); Chloride 94 mmol/L (98-107); Glucose 99 mg/dL (74-106); Sodium 133 mmol/L (136-145)
--- NOTE | 2025-04-09 13:37 | DVHPN2 ---
Subjective The patient seen and examined at bedside. Feel better but still SOB. Still complains of severe pain despite on Dilaudid and [place]. Reviewed: Care Plan, H&P, Labs, Medications, Previous Orders, Radiology Objective Vitals Vital Signs Date Time Temp Pulse Resp B/P (MAP) Pulse Ox O2 Delivery O2 Flow Rate FiO2 04/09/25 09:54 100 Nasal Cannula* 3 32 04/09/25 09:25 93 18 04/09/25 09:00 97.4 134/79 (97) 97.4 Intake/Output Intake and Output 04/09/25 07:00 Intake Total 1510 ml Output Total 300 ml Balance 1210 ml Intake Oral 1260 ml IV Total 250 ml Output Urine Total 300 ml # Voids 4 General Appearance: Alert, Oriented X3, Cooperative, No acute distress HEENT: Atraumatic, PERRLA, EOMI, Mucous membr. moist/pink Neck: Supple Lungs: Other (Decreased air entry bilaterally. Wheezing present. No rhonchi) Cardiovascular: Regular rate, Normal S1, Normal S2, No murmurs, Gallops, Rubs Abdomen: Normal bowel sounds, Soft, No tenderness Neuro: Cranial nerves 3-12 NL Psych/Mental Status: Mental status NL Medications Current Medications Medications Dose Ordered Sig/Efren Route Start Time Stop Time Status Last Admin Dose Admin Clindamycin Phosphate 50 ml @ 50 mls/hr Q8HR IV 04/04/25 22:00 04/09/25 05:14 50 MLS/HR Cefepime HCl 50 ml @ 12.5 mls/hr Q12HR IV 04/04/25 22:00 04/09/25 09:37 12.5 MLS/HR Temazepam 15 mg QHSP PRN PO 04/04/25 20:15 Ondansetron HCl 4 mg Q4HP PRN IV 04/04/25 20:15 04/05/25 09:26 4 MG Acetaminophen 650 mg Q6HP PRN PO 04/04/25 20:15 04/05/25 06:29 650 MG Albuterol 2.5 mg Q4HR NEB 04/06/25 22:00 04/09/25 09:19 2.5 MG Ipratropium [place] 0.5 mg Q4HR NEB 04/06/25 22:00 04/09/25 09:19 0.5 MG Hydromorphone HCl 1 mg Q6HP PRN IV 04/07/25 13:00 04/08/25 13:06 1 MG Oxycodone/ Acetaminophen 2 tab Q4HP PRN PO 04/07/25 13:00 04/09/25 04:46 2 TAB Prednisone 20 mg BID PO 04/07/25 22:00 04/09/25 09:37 20 MG Budesonide 0.5 mg BID NEB 04/07/25 22:00 04/09/25 09:20 0.5 MG Fentanyl 25 mcg Q72H TD 04/08/25 14:00 04/08/25 14:00 25 MCG Laboratory Results Laboratory Tests 04/09/25 06:08 Chemistry Test 04/09/25 06:08 Calcium Level 9.1 mg/dL (8.7-10.4) Urinalysis Test 04/04/25 16:19 Urine Color Yellow (Yellow) Urine Clarity Turbid (Clear) H Urine pH 6.0 (5.0-9.0) Urine Specific [place] 1.031 (1.001-1.035) Urine Protein 1+ (Negative) H Urine Ketones 1+ (Negative) H Urine Blood 3+ /uL (Negative) H Urine Nitrite Negative (Negative) Urine Bilirubin Negative (Negative) Urine Urobilinogen Normal mg/dL (Negative) Urine Leukocyte Esterase Trace /uL (Negative) Urine RBC 417 /hpf (0 - 4) Urine Microscopic WBC 10 /HPF (0-5) H Urine Squamous Epithelial Cells Many /hpf (<5) Urine Bacteria Few /hpf (None Seen) H Urine Mucus Few (None Seen) Urine Yeast (Budding) Occasional /hpf (None Urine Glucose Normal mg/dL (Normal) Microbiology Microbiology Date/Time Source Procedure Growth Status 04/05/25 15:17 Nose MRSA Screen - Final Complete 04/04/25 15:31 Blood Blood Culture - Preliminary Pseudomonas aeruginosa Resulted Assessment/Plan Assessment/Plan Acute on chronic respiratory failure COPD exacerbation ? Metastatic disease History of breast cancer Hypokalemia Multiple infected open wounds across chest Plan Continue current management. Continue with Clindamycin and cefepime IV Per patient, she had treatment at [facility] for breast cancer with chemotherapy. However, the doctor said she didn't need mastectomy. 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 Wound consult Wound cultures Pain management with [place]. Per patient she will see her oncologist at [facility] on thursday to start salvage chemo. I will increase percocet to 10/325 one tab q6hPRN for break through pain I will increase dilaudid 1mg IV q4h PRN for moderate and severe pain. I will add fentanyl patch 25mcg one patch q 72 hours. SW for wound care /homehealth Discharge planning. This medical document was created using an electronic medical record system with [employer] direct computerized dictation system. Although this document has been carefully reviewed, there may still be some phonetic and typographical errors. These areas are purely typographical due to imperfections of the software programs, and do not reflect any compromise in the patient's medical care. My Orders Orders - JUAN CAST MD Procedure Category Date Status Time Fentanyl 25mcg/Hr PHA 04/08/25 In Process (Durages[place] 25mcg/Hr) 14:00 * Finishing Machine Operator CONS 04/08/25 Transmitted Consult JUAN CAST MD Apr 09, 2025 13:37
[2025-04-09] MEDS ORDERED: FENT25DI2 TD (13:45)
[2025-04-09] MEDS ORDERED: PERCOT PO (13:45)
[2025-04-09] MEDS ORDERED: AUG875T PO (13:57)
--- NOTE | 2025-04-09 13:57 | DVHDS2 ---
Discharge Summary Date of Admission Apr 04, 2025 at 19:54 Date of Discharge: Apr 09, 2025 Admitting Diagnosis Acute on chronic respiratory failure COPD exacerbation ? Metastatic disease History of breast cancer Hypokalemia Multiple infected open wounds across chest Labs/Diagnostic Data: Laboratory Results Test 04/09/25 06:08 04/05/25 04:53 04/04/25 18:47 04/04/25 17:13 White Blood Count 10.9 10^3/uL (4.4-10.8) Red Blood Count 3.89 10^6/uL (4.0-5.20) Hemoglobin 10.6 g/dL (12.2-16.2) Hematocrit 31.5 % (36.0-46.0) Mean Corpuscular Volume 80.9 fL (80.0-100.0) Mean Corpuscular Hemoglobin 27.3 pg (28.0-32.0) Mean Corpuscular Hemoglobin Concent 33.7 g/dL (32.0-36.0) Red Cell Distribution Width 17.2 % (11.8-14.3) Platelet Count 242 10^3/uL (140-450) Mean Platelet Volume 6.7 fL (6.9-10.8) Neutrophils (%) (Auto) 90.4 % (37.0-80.0) Lymphocytes (%) (Auto) 4.8 % (10.0-50.0) Monocytes (%) (Auto) 4.7 % (0.0-12.0) Eosinophils (%) (Auto) 0.0 % (0.0-7.0) Basophils (%) (Auto) 0.1 % (0.0-2.0) Neutrophils # (Auto) 9.8 10 ^3/uL (1.6-8.6) Lymphocytes # (Auto) 0.5 10 ^3/uL (0.4-5.4) Monocytes # (Auto) 0.5 10 ^3/uL (0-1.3) Eosinophils # (Auto) 0 10 ^3/uL (0-0.8) Basophils # (Auto) 0 10 ^3/uL (0-0.2) Nucleated Red Blood Cells 0.0 % Sodium Level 133 mmol/L (136-145) Potassium Level 4.5 mmol/L (3.5-5.1) Chloride Level 94 mmol/L (98-107) Carbon Dioxide Level 28 mmol/L (20-31) Anion Gap 11 (5-15) Blood Urea Nitrogen 12 mg/dL (9-23) Creatinine 0.50 mg/dL (0.550-1.02) Glomerular Filtration Rate Calc 103 mL/min (>90) BUN/Creatinine Ratio 24.0 (10.0-20.0) Serum Glucose 99 mg/dL (74-106) Calcium Level 9.1 mg/dL (8.7-10.4) Total Bilirubin 0.4 mg/dL (0.2-1.0) Aspartate Amino Transferase (AST) 48 U/L (13-40) Alanine Aminotransferase (ALT) 14 U/L (7-40) Alkaline Phosphatase 366 U/L (46-116) Total Protein 6.6 g/dL (5.7-8.2) Albumin 3.4 g/dL (3.2-4.8) Troponin I High Sensitivity 23 ng/L (</=34) Lactic Acid Level 2.3 mmol/L (0.4-2.0) Test 04/04/25 16:19 04/04/25 15:31 04/04/25 11:00 Urine Color Yellow (Yellow) Urine Clarity Turbid (Clear) Urine pH 6.0 (5.0-9.0) Urine Specific [place] 1.031 (1.001-1.035) Urine Protein 1+ (Negative) Urine Ketones 1+ (Negative) Urine Blood 3+ /uL (Negative) Urine Nitrite Negative (Negative) Urine Bilirubin Negative (Negative) Urine Urobilinogen Normal mg/dL (Negative) Urine Leukocyte Esterase Trace /uL (Negative) Urine RBC 417 /hpf (0 - 4) Urine Microscopic WBC 10 /HPF (0-5) Urine Squamous Epithelial Cells Many /hpf (<5) Urine Bacteria Few /hpf (None Seen) Urine Mucus Few (None Seen) Urine Yeast (Budding) Occasional /hpf (None Urine Glucose Normal mg/dL (Normal) Platelet Estimate Adequate Anisocytosis (manual) Slight Stomatocytes Few B-Type Natriuretic Peptide 88.04 pg/mL (0-100) Influenza Type A Antigen Negative (Negative) Influenza Type B Antigen Negative (Negative) SARS-CoV-2 Antigen (Rapid) Negative (NEGATIVE) Other Laboratory Tests 04/09/25 06:08 Brief Hx & Hospital Course: This is a 65 years old female come into emergency department for severe shortness for breath and intractable pain. The patient apparently had history of breast cancer currently complete radiation therapy at [facility]. Patient reports develop open wounds across her chest that had become infected. She has home health treat her wound on daily basis. She started on chemotherapy and currently on hold due to infected wound. She started worsening shortness for breath over the past couple day and was sent to the hospital for further evaluation. The patient had severe wound across her breasts. The patient was admitted and put on IV antibiotic with clindamycin and cefepime. The patient also has hypoxia and pneumonia . Intellectual Property Counsel has see her. Her pain is intractable. Unable to control with Dilaudid and Percocet. I started her on fentanyl patch 25 mcg every 72 hours. Her pain is better controlled. The patient received wound care in the hospital and I consulted home health for wound care at home. The patient will be discharged home today. She is supposed to see her oncologist at [facility] tomorrow. Activity as tolerated. Diet per home diet. Physical exam: HEENT: Normocephalic atraumatic pupils equal react to light and accommodation. Extraocular muscles intact, conjunctiva pink, oropharynx moist, no thrush, no exudate. Lymphatic: No lymphadenopathy Cardiovascular exam: S1, S2 was heard. No murmurs, rubs, gallops Lung: Clear on auscultation bilaterally, no wheeze, rale, rhonchi. GI: Abdominal soft, nondistended, nontenderness, positive bowel sounds. Extremity: No crepitus, cyanosis, edema. Pedal pulses present bilateral. Full range of motion. Skin: Normal turgor, multiple wound in the chest area Psych: Alert, oriented x3. Neurology: No focal deficits, cranial nerve II to XII grossly intact. Condition at Discharge: Stable Final Diagnosis/Problems List Acute on chronic respiratory failure COPD exacerbation Breast cancer with metastasized History of breast cancer Hypokalemia Multiple infected open wounds across chest Intractable chronic pain due to cancer Discharge Disposition: Home Discharge Instruct/Medications Diet: Cardiac 2g Na,low cholest Activity: No Restrictions, As Tolerated Follow Up/Referral: pcp 1-2 WEEKS oncologist tomorrow at [facility] Scheduled Amoxicillin & Pot Clavulanate (Augmentin Tablet), 875 MG PO BID Oplflmmabsw-Ljywbuxqsjzx-Waerq (Trelegy Ellipta 100-62.5-25 Mcg/INH), 1 PUFF INH DAILY, (Reported) Oxycodone Hcl (OxyCONTIN ER Tablet), 1 TAB PO BID, (Reported) Scheduled PRN Fentanyl (Fentanyl), 25 MCG TD every 72 hours PRN Discharge Statement: "Patient was advised to return to the ER or call 911 if any headaches, dizziness, shortness of breath, chest pain, abdominal pain, bleeding, fevers, or worsening of medical condition. Patient was counseled about treatment plan, medications, possible side effects, patientverbalized understanding. All questions were answered to the best of my ability. This discharge took greater then 30 minutes in planning, reviewing documentation, counseling the patient, and discussing with other team members." ASSESSMENT ASSESSMENT Assessment PNA Date of Service: Apr 09, 2025 Billing Provider: JUAN CAST MD Common Visit Codes: 20753-FPU/OBS DISCH DAY >30min JUAN CAST MD Apr 09, 2025 13:57
--- NOTE | 2025-04-09 23:43 | DVHPN2 ---
Subjective DOS: 04/09/2025 Patient seen and examined at bedside. Remains on supplemental oxygen Overnight events reviewed. Reviewed: Care Plan, H&P, Labs, Medications, Previous Orders, Radiology Changes from previous H/P or p: No Changes Objective Vitals Vital Signs Date Time Temp Pulse Resp B/P (MAP) Pulse Ox O2 Delivery O2 Flow Rate FiO2 04/09/25 15:19 36.8 04/09/25 14:30 87 18 133/74 04/09/25 13:56 100 04/09/25 13:51 Nasal Cannula* 4 36 Intake/Output Intake and Output 04/09/25 07:00 Intake Total 1510 ml Output Total 300 ml Balance 1210 ml Intake Oral 1260 ml IV Total 250 ml Output Urine Total 300 ml # Voids 4 General Appearance: Alert, Oriented X3, Cooperative, No acute distress HEENT: Atraumatic, PERRLA, EOMI, Mucous membr. moist/pink Neck: Supple Lungs: Other (Decreased air entry bilaterally. Wheezing present. No rhonchi) Cardiovascular: Regular rate, Normal S1, Normal S2, No murmurs, Gallops, Rubs Abdomen: Normal bowel sounds, Soft, No tenderness Neuro: Cranial nerves 3-12 NL Psych/Mental Status: Mental status NL Laboratory Results Laboratory Tests 04/09/25 06:08 Chemistry Test 04/09/25 06:08 Calcium Level 9.1 mg/dL (8.7-10.4) Urinalysis Test 04/04/25 16:19 Urine Color Yellow (Yellow) Urine Clarity Turbid (Clear) H Urine pH 6.0 (5.0-9.0) Urine Specific [place] 1.031 (1.001-1.035) Urine Protein 1+ (Negative) H Urine Ketones 1+ (Negative) H Urine Blood 3+ /uL (Negative) H Urine Nitrite Negative (Negative) Urine Bilirubin Negative (Negative) Urine Urobilinogen Normal mg/dL (Negative) Urine Leukocyte Esterase Trace /uL (Negative) Urine RBC 417 /hpf (0 - 4) Urine Microscopic WBC 10 /HPF (0-5) H Urine Squamous Epithelial Cells Many /hpf (<5) Urine Bacteria Few /hpf (None Seen) H Urine Mucus Few (None Seen) Urine Yeast (Budding) Occasional /hpf (None Urine Glucose Normal mg/dL (Normal) Microbiology Microbiology Date/Time Source Procedure Growth Status 04/05/25 15:17 Nose MRSA Screen - Final Complete 04/04/25 15:31 Blood Blood Culture - Final Pseudomonas aeruginosa Complete Assessment/Plan Assessment/Plan Impression: Acute on chronic hypoxic respiratory failure Dependence on supplemental oxygen Acute exacerbation of COPD Metastatic disease Breast cancer Multiple infected wounds. Nicotine dependence Events: Remains on supplemental oxygen, 3 LPM NC Improving O2 requirements Continue to taper O2 as tolerated Continue bronchodilators Complete steroid and antibiotic course Incentive spirometry Wheezing improved - on prednisone and Pulmicort Wound care Pain control Patient is stable for discharge from the pulmonary standpoint. Labs and imaging reviewed. Rest of plan as noted below. Plan: Supplemental oxygen Titrate to keep O2 sats above 92%. Continue bronchodilators. Continue antibiotics Wound care. Follow up Oncology recs Monitor renal function. Monitor electrolytes. Supplement as necessary. Supplement potassium Monitor ins and outs. Smoking cessation discussed greater than 10 minutes. DVT prophylaxis. Prognosis: Poor given patient's multiple co-morbidities. Rest of plan per hospitalist and other consultants. Thank you, Dr. Scruggs, for allowing me to participate in this patient's care. Further recommendations will depend on the patient's clinical course. Please do not hesitate to contact me if you have any questions or concerns. This medical document was created using an electronic medical record system with [employer] computerized dictation system. Although these documentations are being carefully reviewed, there may still be some phonetic and typographical changes. The errors are purely typographical, due to imperfection on the software program, and do not reflect any compromise in the patient's medical care Plan discussed with: Patient, Other (TREVON Dhillon) Visit Coding Pulmonary Billing Provider: PETER BUSH MD Date of Service if different f: Apr 09, 2025 Common Visit Codes: [id number] INP/OBS CARE(HIGH) PETER BUSH MD Apr 09, 2025 23:43
[2025-04-09] MEDS ORDERED: CLIN1CAP70 PO (23:45)
== END 2025-04-09 16:35 | disposition home health service (06) | DRG 871 ==
LOC: ER 14:32 → EDBD 14:32 → OVERFLOW 19:54 → EAST 04-05 18:18
PROVIDERS: ADMIT Internal Medicine; ATTEND Internal Medicine
DX: A41.59 Other Gram-negative sepsis (principal); J15.69 Pneumonia due to other Gram-negative bacteria; J96.21 Acute and chronic respiratory failure with hypoxia; J15.9 Unspecified bacterial pneumonia; J44.1 Chronic obstructive pulmonary disease with (acute) exacerbation; S21.109A Unspecified open wound of unspecified front wall of thorax without penetration into thoracic cavity, initial encounter; J44.0 Chronic obstructive pulmonary disease with (acute) lower respiratory infection; E87.6 Hypokalemia; Z99.81 Dependence on supplemental oxygen; F17.210 Nicotine dependence, cigarettes, uncomplicated; G89.3 Neoplasm related pain (acute) (chronic); Z88.5 Allergy status to narcotic agent; Z20.822 Contact with and (suspected) exposure to COVID-19; Z90.49 Acquired absence of other specified parts of digestive tract; X58.XXXA Exposure to other specified factors, initial encounter; B99.8 Other infectious disease; C50.912 Malignant neoplasm of unspecified site of left female breast; C50.911 Malignant neoplasm of unspecified site of right female breast; Y93.89 Activity, other specified; Y92.89 Other specified places as the place of occurrence of the external cause; Y99.8 Other external cause status
CPT/HCPCS: 36415; 71045; 80048; 80053; 81001; 83605; 83880; 84484; 85025; 87040; 87077; 87081; 87186; 87205; 87426; 87804; 93005; 94640; 99291; G0378; J1956; J2405; J3490

== ENCOUNTER 2025-04-21 01:13 | Inpatient (IN) | payer MEDICARE, MEDICAID ==
[2025-04-21] VITALS (12 sets, daily range): BP systolic 135–146; BP diastolic 75–82; PULSE 81–110; RESP 14–22; TEMP 97.4–99; O2SAT 90–99
[~2025-04-21] VITALS: Ht 160 cm; Wt 60.2 kg
[~2025-04-21 01:13] MED LIST: AUG875T PO; CLIN1CAP70 PO; FENT25DI2 TD; FLUT1AER3 INH; OXY10CRT PO
--- NOTE | 2025-04-21 01:28 | ED.PDOC ---
SOB-HPI HPI Comments HPI: 65-year-old female in the ER via EMS for shortness of breath. Per EMS, patient picked up at home, on hospice care, was noted to be short of breath since yesterday, Does have history of COPD and Breast cancer. Was saturating at 78% at 4 lpm at home Past Medical History: COPD, asthma, breast cancer Surgical History: Denies Family History: Denies Personal And Social History: Denies TORRES: ACUTE RESPIRATORY DISTRESS HPI: Poor Historian. 65-year-old female brought in by ambulance from home for acute respiratory distress. Patient has been was using 4 L nasal cannula O2 sat is 78%. Patient is on hospice for history of cancer. Patient received a breathing treatment in route and her oxygenation improved to 97%. REVIEW OF SYSTEMS: CONSTITUTIONAL: Denies acute: fever, diaphoresis, chills, generalized weakness. HEAD: Denies acute: headache, photophobia Eyes: Denies acute: Double vision, vision loss, eye pain, eye discharge. EARS: Denies acute: tinnitus, hearing loss, ear discharge, ear pain, THROAT: Denies acute: sore throat, swelling, difficulty swallowing , pain with swallowing, change in voice. NECK: Denies acute: neck pain, neck swelling, stiff neck. HEART: Denies acute : chest pain, palpitations, LUNGS: Denies acute: , wheezing, cough, hemoptysis ABDOMEN: Denies acute: abdominal pain, Nausea, Vomiting, diarrhea, melena , hematemesis, hematochezia SKIN: Denies acute: rash, redness, lesions, itchiness. EXTREMITIES: Denies acute: calf pain, numbness, tingling, weakness, denies pain in extremity. Denies acute: Low back pain. Neuro: Denies acute: focal neurological deficit, motor or sensory focal neurological deficit, tremors, seizure like activity, confusion, dizziness, change in mental status, loss of bowel or bladder function, cauda equina like symptoms. : Denies acute: dysuria, hematuria, flank pain, increase in urinary frequency. PSYCH: Denies acute: hallucination, suicidal ideation, homicidal ideation. FEMALE: Denies acute: abnormal vaginal bleeding, foul odor, unusual discharge. PHYSICAL EXAM: General: -----moderate---acute distress, awake and alert. Head: normocephalic, atraumatic. No raccoon's eyes, no grady sign. Neck: supple, trachea is midline, no swelling. Throat: Normal phonation. Eyes:, no erythema, no purulent discharge, no proptosis, no icterus. Heart: regular tachycardic, no significant murmur appreciated. Lungs: [id number] respiratory distress, No wheezing, no rhonchi, no crackles. No stridors Clear to auscultation bilaterally. Abdomen: non tender to palpation, non distended, soft, no guarding, no rebound, + bowel sounds. Noted anterior chest wall fungating mass consistent with a history of breast cancer. Not actively bleeding. Neuro: Awake, Alert, oriented to name, self, situation, follows commands GCS=15. Speech is normal. Skin: no petechia, no purpura, no cyanosis, non-pale, not jaundice. Lower extremities: --no - Pitting edema no deformity, no focal swelling, no calf TTP. Makes eye contact. ED COURSE: DISCLAIMER: This medical document was created using an electronic medical record system with voice recognition software and computerized dictation system. Although this document has been carefully reviewed, there might still be some phonetic and typographical errors. Occasional wrong-word or "sound-alike" substitutions may have occurred due to the inherent limitations of voice recognition software. These areas are purely typographical due to imperfections of the software programs and do not reflect any compromise in the patient's medical care. Please read the chart carefully and recognize, using context, where these substitutions have occurred. Chief Complaint: Shortness of breath Time Seen by MD: 01:28 Primary Care Provider: NONE Reviewed notes: Supplier Quality Engineering Manager Notes Information Source: Patient, Emergency Med Personnel Mode of Arrival: EMS Past Medical History PAST MEDICAL HISTORY: Asthma, Cancer, COPD Surgical History: Appendectomy, PRODUCT PICKER History: No Pertinent PRODUCT PICKER History Family History Family History: Unknown Social History Smoker: Cigarettes, Less Than 1 Pack/Day Alcohol: Denies ETOH Use Drugs: Methamphetamine Lives In: Home Was a procedure done? Was a procedure done?: No Differential Dx Differential Diagnosis: Other (DDx include ACS, unstable angina, anxiety, PE, pneumothroax, neoplasm, cardiac ischemia, COPD, asthma, CHF, pleural effusion, tobacco abuse, pneumonia, hypoxia, hypercapnia, anemia., infection/sepsis., pulmonary edema. Asthma, Cardiac tamponade, infection.) X-Ray, Labs, Meds, VS Vital Signs Date Time Temp Pulse Resp B/P (MAP) Pulse Ox O2 Delivery O2 Flow Rate FiO2 04/21/25 02:58 110 14 90 Nasal Cannula* 4 36 04/21/25 02:58 99.0 110 14 135/75 (95) 90 99.0 04/21/25 02:10 109 04/21/25 01:33 16 94 Nasal Cannula* 4 36 04/21/25 01:13 99.6 115 20 148/98 96 99.6 Lab Test 04/21/25 02:57 04/21/25 01:57 Range/Units Troponin I High Sensitivity Pending 10 </=34 ng/L White Blood Count 10.1 4.4-10.8 10^3/uL Red Blood Count 4.61 4.0-5.20 10^6/uL Hemoglobin 12.2 12.2-16.2 g/dL Hematocrit 38.2 36.0-46.0 % Mean Corpuscular Volume 82.8 80.0-100.0 fL Mean Corpuscular Hemoglobin 26.4 L 28.0-32.0 pg Mean Corpuscular Hemoglobin Concent 31.9 L 32.0-36.0 g/dL Red Cell Distribution Width 17.9 H 11.8-14.3 % Platelet Count 213 140-450 10^3/uL Mean Platelet Volume 6.6 L 6.9-10.8 fL Neutrophils (%) (Auto) 83.6 H 37.0-80.0 % Lymphocytes (%) (Auto) 8.5 L 10.0-50.0 % Monocytes (%) (Auto) 7.7 0.0-12.0 % Eosinophils (%) (Auto) 0.1 0.0-7.0 % Basophils (%) (Auto) 0.1 0.0-2.0 % Neutrophils # (Auto) 8.4 1.6-8.6 10 ^3/uL Lymphocytes # (Auto) 0.9 0.4-5.4 10 ^3/uL Monocytes # (Auto) 0.8 0-1.3 10 ^3/uL Eosinophils # (Auto) 0 0-0.8 10 ^3/uL Basophils # (Auto) 0 0-0.2 10 ^3/uL Nucleated Red Blood Cells 0.0 % Sodium Level 134 L 136-145 mmol/L Potassium Level 4.1 3.5-5.1 mmol/L Chloride Level 100 98-107 mmol/L Carbon Dioxide Level 21 20-31 mmol/L Anion Gap 13 5-15 Blood Urea Nitrogen 12 9-23 mg/dL Creatinine 0.50 L 0.550-1.02 mg/dL Glomerular Filtration Rate Calc 103 >90 mL/min BUN/Creatinine Ratio 24.0 H 10.0-20.0 Serum Glucose 92 74-106 mg/dL Calcium Level 9.6 8.7-10.4 mg/dL Total Bilirubin 0.8 0.2-1.0 mg/dL Aspartate Amino Transferase (AST) 97 H 13-40 U/L Alanine Aminotransferase (ALT) 53 H 7-40 U/L Alkaline Phosphatase 867 H 46-116 U/L B-Type Natriuretic Peptide Pending Total Protein 7.5 5.7-8.2 g/dL Albumin 3.7 3.2-4.8 g/dL Current Medications Medications (Trade) Dose Ordered Sig/Efren Route Start Time Stop Time Status Last Admin Albuterol (Ventolin Medneb) 2.5 mg ONCE ONCE NEB 04/21/25 01:30 04/21/25 01:31 DC 04/21/25 01:33 Ipratropium [place] (Atrovent Medneb) 1 mg ONCE ONCE NEB 04/21/25 01:30 04/21/25 01:31 DC 04/21/25 01:33 Methylprednisolone Sodium Succinate (Solu Medrol) 125 mg ONCE ONCE IV 04/21/25 01:30 04/21/25 01:31 DC 04/21/25 02:[address] [address] Ph: [phone] DIAGNOSTIC IMAGING Diagnostic Imaging Report : [id number] Signed PATIENT: DISHA TORRES ACCT: [id number] UNIT: [id number] : 1960 LOC: ER ROOM / BED: / AGE / SEX: 65 / F ADM STATUS: REG ER SERVICE 0118 ORDERING PHYSICIAN: WALTER SOLIS DO PROCEDURE(s): CXRP - CHEST PORTABLE REASON: sob ORDER NUMBER(s): [id number], ACCESSION NUMBER(s): [id number] CHEST RADIOGRAPH Indication: sob Technique: Single frontal view of the chest was obtained COMPARISON: XY CHEST PORTABLE on DOS: 04/04/25 FINDINGS: Lines and Tubes: Interval removal of right PICC. Lungs: Innumerable bilateral pulmonary mass lesions and nodules redemonstrated consistent with probable metastatic disease. Pleura: No effusion. No pneumothorax. Cardiomediastinal contours: Unremarkable Bones: Unremarkable IMPRESSION: 1. Interval removal of right PICC. 2. Innumerable bilateral pulmonary mass lesions and nodules consistent with probable pulmonary metastatic disease. ATED BY: DAIN MORALES MD DICTATED DATE/TIME: 04/21/25231 SIGNED BY: DAIN MORALES MD SIGNED DATE/TIME: 04/21/25231 CC: Time of 1ST Reevaluation: 03:16 Reevaluation 1ST: Improved Patient Education/Counseling: Diagnosis, Treatment Family Education/Counseling: Other Comments MDM: patient presented with the above HPI.-hypoxemia and acute respiratory distress-----workup was initiated. patient was found with the above mentioned diagnosis. the following medications were ordered: please refer to order lists of meds and tests obtained by myself Dr. Solis. Patient ED course and VS have been stabilized. Patient has been reassessed in the ED and remained in a stable condition. Pertinent incidental findings were discussed with the patient and/or family. Patient/family voices understanding and is agreeable with plan. Patient has been observed in the ED adequate length of time to insure improvement/stability. Escalation of care considered: Consideration of escalation to observation or admission Patient was given breathing treatment and steroids. Chest X-ray shows metastatic disease. Patient was placed on a non-rebreather mask for comfort. Patient was ADMITTED to the medicine team for further evaluation and treatment of their presentation. All the reports of any imaging studies that were ordered by myself were reviewed by myself. SEPSIS Sepsis Screen Physician Orders Low Altitude Air Defense Officer (04/21/25 ) B-Type Natriuretic Peptide (04/21/25 01:18) Chest Portable (04/21/25 01:18) Electrocardigram (04/21/25 01:18) Troponin-I Hs (04/21/25 02:18) Troponin-I Hs (04/21/25 04:18) Complete Blood Count (04/21/25 04:00) Comprehensive Metabolic Panel (04/21/25 04:00) Methylprednisolone Sod Succ (Solu Medrol (04/21/25 06:00) Famotidine Injection (Pepcid Injection) (04/21/25 10:00) Albuterol Medneb (Ventolin Medneb) (04/21/25 03:15) Ipratropium Medneb (Atrovent Medneb) (04/21/25 03:15) *Consult (04/21/25 03:01) Oxycodone Er Tablet (Oxycontin Er Tablet (04/21/25 10:00) * Hematology/Oncology Consult (04/21/25 03:01) Allergies (04/21/25 03:01) Code Status (04/21/25 03:01) Sodium Chloride 0.9% (04/21/25 03:15) Oxygen Per Hour (04/21/25 03:01) Ondansetron Hcl (Zofran) (04/21/25 03:15) Docusate Sodium Capsule (Colace Capsule) (04/21/25 03:15) Fall Risk Precautions In Place QSHIFT (04/21/25 03:01) Complete Blood Count (04/22/25 04:00) Comprehensive Metabolic Panel (04/22/25 04:00) Cardiac Diet-2gna,Lofat,Lochol (04/21/25 Breakfast) Condition: Serious (04/21/25 03:01) Acetaminophen Tablet (Tylenol Tablet) (04/21/25 03:15) Maintain Bed Rest (04/21/25 03:01) Sequential Compression Device (04/21/25 ) Admit (04/21/25 03:12) Nitroglycerin Sublingual (Ntrostat Subli (04/21/25 03:15) Stat Ekg For Chest Pain (04/21/25 03:12) Notify Md Of Changes From Base (04/21/25 03:12) Floor Covering Layer For 24 Hours (04/21/25 03:12) Emergency Dysrhythmia Protocol (04/21/25 03:12) Rhythm Strips Once Every Shift (04/21/25 03:12) Oxygen By Nasal Cannula (04/21/25 03:12) Vital Signs Date Time Temp Pulse Resp B/P (MAP) Pulse Ox O2 Delivery O2 Flow Rate FiO2 04/21/25 02:58 110 14 90 Nasal Cannula* 4 36 04/21/25 02:58 99.0 110 14 135/75 (95) 90 99.0 04/21/25 02:10 109 04/21/25 01:33 16 94 Nasal Cannula* 4 36 04/21/25 01:13 99.6 115 20 148/98 96 99.6 Laboratory Tests Test 04/21/25 01:57 White Blood Count 10.1 10^3/uL (4.4-10.8) Medications Medications Dose Ordered Sig/Efren Route Start Time Stop Time Status Last Admin Dose Admin Albuterol 2.5 mg ONCE ONCE NEB 04/21/25 01:30 04/21/25 01:31 DC 04/21/25 01:33 Ipratropium [place] 1 mg ONCE ONCE NEB 04/21/25 01:30 04/21/25 01:31 DC 04/21/25 01:33 Methylprednisolone Sodium Succinate 125 mg ONCE ONCE IV 04/21/25 01:30 04/21/25 01:31 DC 04/21/25 02:55 Departure 1 Departure Time of Disposition: 01:45 Impression: Primary Impression: Acute respiratory distress Additional Impression: Metastatic disease Disposition: 09 ADMITTED INPATIENT Admit to: [facility] Condition: Guarded Additional Instructions: Discharged With: Self Critical Care Note Critical Care Time?: Yes (45 min-critical care time only) Heart Score Heart Score: Heart Score Response (Comments) Value History Slightly Suspicious 0 EKG Normal 0 Age >65 2 Risk Factors 1 or 2 risk factors 1 Troponin Normal limit 0 Total 3 I personally scribed for WALTER SOLIS DO ([email or web address]) on 04/21/25 at 01:28. Electronically submitted by Jerry Benjamin ([facility]). I personally scribed for WALTER SOLIS DO ([email or web address]) on 04/21/25 at 02:38. Electronically submitted by Jerry Benjamin ([facility]). WALTER SOLIS DO Apr 21, 2025 01:28
[2025-04-21] MEDS: ALBUTEROL SULF 2.5 MG/0.5ML(0.5%) NEB SOLN NEB ONE (01:33)
[2025-04-21] MEDS: IPRATROPIUM BROM 0.5 MG/2.5ML INH SOL NEB ONE (01:33)
[2025-04-21 02:10] LABS: Hematocrit 38.2 % (36.0-46.0); Hemoglobin 12.2 g/dL (12.2-16.2); Mean Corpuscular Hemoglobin 26.4 pg (28.0-32.0); Mean Corpuscular Volume 82.8 fL (80.0-100.0); Nucleated Red Blood Cells % 0.0 %
--- NOTE | 2025-04-21 02:35 | DVH ---
CHEST RADIOGRAPH Indication: sob Technique: Single frontal view of the chest was obtained COMPARISON: XY CHEST PORTABLE on DOS: 04/04/25 FINDINGS: Lines and Tubes: Interval removal of right PICC. Lungs: Innumerable bilateral pulmonary mass lesions and nodules redemonstrated consistent with probable metastatic disease. Pleura: No effusion. No pneumothorax. Cardiomediastinal contours: Unremarkable Bones: Unremarkable IMPRESSION: 1. Interval removal of right PICC. 2. Innumerable bilateral pulmonary mass lesions and nodules consistent with probable pulmonary metastatic disease.
[2025-04-21 02:44] LABS: Albumin 3.7 g/dL (3.2-4.8); Anion Gap 13 (5-15); BUN/Creatinine Ratio 24.0 (10.0-20.0); Bilirubin, Total 0.8 mg/dL (0.2-1.0); Blood Urea Nitrogen 12 mg/dL (9-23); Calcium 9.6 mg/dL (8.7-10.4); Carbon Dioxide 21 mmol/L (20-31); Chloride 100 mmol/L (98-107); Glucose 92 mg/dL (74-106); Potassium 4.1 mmol/L (3.5-5.1); Total Protein 7.5 g/dL (5.7-8.2)
[2025-04-21 02:46] LABS: Alanine Aminotransferase 53 U/L (7-40); Alkaline Phosphatase 867 U/L (46-116); Sodium 134 mmol/L (136-145)
[2025-04-21] MEDS: methylPREDNISolone SOD SUCC 125 MG/2 ML VL IV ONE (02:55)
--- NOTE | 2025-04-21 03:14 | DVHHP2 ---
History of Present Illness Reason for Visit: Acute respiratory distress History of Present Illness The patient is a 65-year-old female with past medical history of asthma, COPD, breast cancer with Mets, and on hospice care presented to [facility] ED with complaint of shortness of breaths. As reported by EMS, patient was picked up at home, noted to be experiencing shortness of breaths since yesterday, desaturating at 78% at 4 L/min, and increased work of breathing. Patient was given breathing treatment and stabilized by EMS EN route to our facility ED. Patient was seen and evaluated in the ED, laboratory data shows WBC 10.1, platelets 213, sodium 134, potassium 4.1, BUN 12, creatinine 0.50, GFR 103, glucose 92, calcium 9.6, AST 97, ALT 53, total bilirubin 0.8, alkaline phos is 67, BNP 54.92, blood pressure 148/98, heart rate 108, temperature 99.6 F, O2 saturation 94% on oxygen. Chest x-ray revealing interval removal of right PICC line; innumerable bilateral pulmonary mass lesions and nodules consistent with probable pulmonary metastatic disease. Please see medication orders section in the computer. On my assessment, patient denied chest pain, no dizziness, headache, diaphoresis, currently on oxygen, no diarrhea, nausea, vomiting, fever, no chills. Patient was admitted for further evaluation and medical management. Past Medical History COPD, Asthma, Breast cancer Past Surgical History Multiple PICC line placement Family History Reviewed, noncontributory to the management of this case. Past Social History The patient lives at home, denies smoking, alcohol or illicit drugs abuse. Review of Systems Constitutional: Yes: Weakness; No: Fever, Chills, Sweats, Malaise, Other Eyes: No: Pain, Vision change, Conjunctivae inflammation, Eyelid inflammation, Other, Redness ENT: No: Ear pain, Ear discharge, Nose pain, Nose discharge, Nose congestion, Mouth pain, Mouth swelling, Throat pain, Throat swelling, Other Respiratory: SOB with excertion, Other (SOB at rest); No: Cough, Dry, Shortness of breath, Wheezing, Hemoptysis, Pleuritic Pain, Sputum, Wheezing Cardiovascular: Chest Pain (Open wound); No: Palpitations, Orthopnea, Paroxysmal Noc. Dyspnea, Edema, Lt Headedness, Other Gastrointestinal: No: Nausea, Vomiting, Abdominal Pain, Diarrhea, Constipation, Melena, Hematochezia, Other Genitourinary: No Dysuria, No Frequency, No Incontinence, No Hematuria, No Retention, No Other Musculoskeletal: No: other, neck pain, shoulder pain, arm pain, back pain, hand pain, leg pain, foot pain Skin: Rash, Jaundice, Bruising, Other (Chest lesions, multiple wound.) Neurological: Weakness; No: Numbness, Incoordination, Change in speech, Confusion, Seizures, Other Allergies: Coded Allergies: Meperidine (Verified Allergy, Unknown, 01/07/18) Morphine (Verified Allergy, Unknown, 01/07/18) Hydrocodone (Verified Adverse Reaction, Mild, itching, 04/05/25) pt refused this meds due to adverse reaction Medications Current Medications Medications Dose Ordered Sig/Efren Route Start Time Stop Time Status Last Admin Dose Admin Methylprednisolone Sodium Succinate 40 mg Q8HR IV 04/21/25 06:00 UNV Famotidine 20 mg Q12HR IV 04/21/25 10:00 UNV Albuterol 2.5 mg Q4HPRN PRN NEB 04/21/25 03:15 UNV Ipratropium [place] 0.5 mg Q4HPRN PRN NEB 04/21/25 03:15 UNV Oxycodone HCl 10 mg Q12HR PO 04/21/25 10:00 UNV Sodium Chloride 1,000 ml @ 60 mls/hr [id number] IV 04/21/25 03:15 UNV Ondansetron HCl 4 mg Q4HP PRN IV 04/21/25 03:15 UNV Docusate Sodium 100 mg BIDPRN PRN PO 04/21/25 03:15 UNV Acetaminophen 650 mg Q6HP PRN PO 04/21/25 03:15 UNV Exam Vital Signs Vital Signs Date Time Temp Pulse Resp B/P (MAP) Pulse Ox O2 Delivery O2 Flow Rate FiO2 04/21/25 02:58 110 14 90 Nasal Cannula* 4 36 04/21/25 02:58 99.0 135/75 (95) 99.0 General Appearance: Alert, Oriented X3, Cooperative, No acute distress HEENT: Atraumatic, PERRLA, EOMI, Mucous membr. moist/pink Respiratory: Normal air movement Cardiovascular: Regular rate, Normal S1, Normal S2, No murmurs Abdominal: Normal bowel sounds, Soft, No tenderness, No hepatospenomegaly, No masses Extremities: No clubbing, No cyanosis, No edema, Normal pulses, No tenderness/swelling Skin: No rashes Neuro: Normal speech, Normal tone, Sensation intact, Cranial nerves 3-12 NL, Reflexes 2+, Other (Generalized weakness) Psych/Mental Status: Mental status NL, Mood NL Labs/Xrays Labs Test 04/21/25 02:57 04/21/25 01:57 Range/Units White Blood Count 10.1 4.4-10.8 10^3/uL Red Blood Count 4.61 4.0-5.20 10^6/uL Hemoglobin 12.2 12.2-16.2 g/dL Hematocrit 38.2 36.0-46.0 % Mean Corpuscular Volume 82.8 80.0-100.0 fL Mean Corpuscular Hemoglobin 26.4 L 28.0-32.0 pg Mean Corpuscular Hemoglobin Concent 31.9 L 32.0-36.0 g/dL Red Cell Distribution Width 17.9 H 11.8-14.3 % Platelet Count 213 140-450 10^3/uL Mean Platelet Volume 6.6 L 6.9-10.8 fL Neutrophils (%) (Auto) 83.6 H 37.0-80.0 % Lymphocytes (%) (Auto) 8.5 L 10.0-50.0 % Monocytes (%) (Auto) 7.7 0.0-12.0 % Eosinophils (%) (Auto) 0.1 0.0-7.0 % Basophils (%) (Auto) 0.1 0.0-2.0 % Neutrophils # (Auto) 8.4 1.6-8.6 10 ^3/uL Lymphocytes # (Auto) 0.9 0.4-5.4 10 ^3/uL Monocytes # (Auto) 0.8 0-1.3 10 ^3/uL Eosinophils # (Auto) 0 0-0.8 10 ^3/uL Basophils # (Auto) 0 0-0.2 10 ^3/uL Nucleated Red Blood Cells 0.0 % Sodium Level 134 L 136-145 mmol/L Potassium Level 4.1 3.5-5.1 mmol/L Chloride Level 100 98-107 mmol/L Carbon Dioxide Level 21 20-31 mmol/L Anion Gap 13 5-15 Blood Urea Nitrogen 12 9-23 mg/dL Creatinine 0.50 L 0.550-1.02 mg/dL Glomerular Filtration Rate Calc 103 >90 mL/min BUN/Creatinine Ratio 24.0 H 10.0-20.0 Serum Glucose 92 74-106 mg/dL Calcium Level 9.6 8.7-10.4 mg/dL Total Bilirubin 0.8 0.2-1.0 mg/dL Aspartate Amino Transferase (AST) 97 H 13-40 U/L Alanine Aminotransferase (ALT) 53 H 7-40 U/L Alkaline Phosphatase 867 H 46-116 U/L Total Protein 7.5 5.7-8.2 g/dL Albumin 3.7 3.2-4.8 g/dL PATIENT: DISHA TORRES ACCT: [id number] UNIT: [id number] : 1960 LOC: ER ROOM / BED: / AGE / SEX: 65 / F ADM STATUS: REG ER SERVICE 0118 ORDERING PHYSICIAN: WALTER SOLIS DO PROCEDURE(s): CXRP - CHEST PORTABLE REASON: sob ORDER NUMBER(s): [id number], ACCESSION NUMBER(s): [id number] CHEST RADIOGRAPH Indication: sob Technique: Single frontal view of the chest was obtained COMPARISON: XY CHEST PORTABLE on DOS: 04/04/25 FINDINGS: Lines and Tubes: Interval removal of right PICC. Lungs: Innumerable bilateral pulmonary mass lesions and nodules redemonstrated consistent with probable metastatic disease. Pleura: No effusion. No pneumothorax. Cardiomediastinal contours: Unremarkable Bones: Unremarkable IMPRESSION: 1. Interval removal of right PICC. 2. Innumerable bilateral pulmonary mass lesions and nodules consistent with probable pulmonary metastatic disease. SEPSIS Sepsis Screen Date sepsis recognized/suspect: Apr 21, 2025 Time Sepsis recognized/suspect: 0113 Recent Procedure: No On Antibiotic Therapy: No Respiratory Rate >20: No Heart Rate >90: No Temp<36 C (96.8 F) or >38.3 C: No SBP <90 or MAP <65 mmHG: No New Acute Mental Status Change: No Is the patient on CPAP, BIPAP,: No Physician Orders Cloth Shader (04/21/25 ) B-Type Natriuretic Peptide (04/21/25 01:18) Chest Portable (04/21/25 01:18) Electrocardigram (04/21/25 01:18) Troponin-I Hs (04/21/25 02:18) Troponin-I Hs (04/21/25 04:18) Complete Blood Count (04/21/25 04:00) Comprehensive Metabolic Panel (04/21/25 04:00) Methylprednisolone Sod Succ (Solu Medrol (04/21/25 06:00) Famotidine Injection (Pepcid Injection) (04/21/25 10:00) Albuterol Medneb (Ventolin Medneb) (04/21/25 03:15) Ipratropium Medneb (Atrovent Medneb) (04/21/25 03:15) *Consult (04/21/25 03:01) Oxycodone Er Tablet (Oxycontin Er Tablet (04/21/25 10:00) * Hematology/Oncology Consult (04/21/25 03:01) Allergies (04/21/25 03:01) Code Status (04/21/25 03:01) Sodium Chloride 0.9% (04/21/25 03:15) Oxygen Per Hour (04/21/25 03:01) Ondansetron Hcl (Zofran) (04/21/25 03:15) Docusate Sodium Capsule (Colace Capsule) (04/21/25 03:15) Fall Risk Precautions In Place QSHIFT (04/21/25 03:01) Complete Blood Count (04/22/25 04:00) Comprehensive Metabolic Panel (04/22/25 04:00) Cardiac Diet-2gna,Lofat,Lochol (04/21/25 Breakfast) Condition: Serious (04/21/25 03:01) Acetaminophen Tablet (Tylenol Tablet) (04/21/25 03:15) Maintain Bed Rest (04/21/25 03:01) Sequential Compression Device (04/21/25 ) Vital Signs Date Time Temp Pulse Resp B/P (MAP) Pulse Ox O2 Delivery O2 Flow Rate FiO2 04/21/25 02:58 110 14 90 Nasal Cannula* 4 36 04/21/25 02:58 99.0 110 14 135/75 (95) 90 99.0 04/21/25 02:10 109 04/21/25 01:33 16 94 Nasal Cannula* 4 36 04/21/25 01:13 99.6 115 20 148/98 96 99.6 Laboratory Tests Test 04/21/25 01:57 White Blood Count 10.1 10^3/uL (4.4-10.8) Medications Medications Dose Ordered Sig/Efren Route Start Time Stop Time Status Last Admin Dose Admin Albuterol 2.5 mg ONCE ONCE NEB 04/21/25 01:30 04/21/25 01:31 DC 04/21/25 01:33 2.5 MG Ipratropium [place] 1 mg ONCE ONCE NEB 04/21/25 01:30 04/21/25 01:31 DC 04/21/25 01:33 1 MG Methylprednisolone Sodium Succinate 125 mg ONCE ONCE IV 04/21/25 01:30 04/21/25 01:31 DC 04/21/25 02:55 125 MG Assessment/Plan Assessment/Plan Acute respiratory distress Metastatic disease Generalized weakness Multiple lesions of metastatic malignancy Plan 1. Admit to telemetry unit 2. Breathing treatment 3. Pain control management 4. IV antibiotic management 5. Management of fluids and electrolytes 6. Consultation for Hematology/Oncology/ wound care 7. Diagnostic test chest x-ray 8. DVT prophylaxis-on SCDs 9. Repeat labs CBC, CMP in a.m. 10. Home medication reviewed and reconciled 11. Continue with current medical management 12. Treatment plan discussed with patient and RN. Patient verbalized understanding. Plan discussed with: Patient, Other (RN) My Orders Orders - JOSE WARD DNP Procedure Category Date Status Time Complete Blood Count LAB 04/21/25 Logged 04:00 Comprehensive LAB 04/21/25 Logged Metabolic Panel 04:00 Methylprednisolone PHA 04/21/25 Logged Sod Succ (Solu Medrol 06:00 Famotidine Injection PHA 04/21/25 Logged (Pepcid Injection) 10:00 Albuterol Medneb PHA 04/21/25 Logged (Ventolin Medneb) 03:15 Ipratropium Medneb PHA 04/21/25 Logged (Atrovent Medneb) 03:15 *Consult CONS 04/21/25 Transmitted 03:01 Oxycodone Er Tablet PHA 04/21/25 Logged (Oxycontin Er Tablet 10:00 * Hematology/Oncology CONS 04/21/25 Transmitted Consult 03:01 Allergies MAYRA 04/21/25 In Process 03:01 Code Status CODE 04/21/25 Transmitted 03:01 Sodium Chloride 0.9% PHA 04/21/25 Logged 03:15 Oxygen Per Hour RT 04/21/25 Transmitted 03:01 Ondansetron Hcl PHA 04/21/25 Logged (Zofran) 03:15 Docusate Sodium PHA 04/21/25 Logged Capsule (Colace 03:15 Fall Risk Precautions MAYRA 04/21/[address] 03:01 Complete Blood Count LAB 04/22/25 Verified 04:00 Comprehensive LAB 04/22/25 Verified Metabolic Panel 04:00 Cardiac DIET 04/21/25 Transmitted Diet-2gna,Lofat,Lochol Breakfast Condition: Serious MAYRA 04/21/25 In Process 03:01 Acetaminophen Tablet [facility] 04/21/25 Logged (Tylenol Tablet) 03:15 Maintain Bed Rest MAYRA 04/21/25 In Process 03:01 Sequential MAYRA 04/21/25 In Process Compression Device Problem List: (1) Acute respiratory distress (2) Metastatic disease (3) Generalized weakness (4) Multiple lesions of metastatic malignancy Date of Service: Apr 21, 2025 Billing Provider: JOSE WARD DNP Common Visit Codes: [id number] INP/OBS CARE (HIGH) JOSE WARD DNP Apr 21, 2025 03:14
[2025-04-21] MEDS ORDERED: NITROGLYCERIN 0.4 MG SL TAB SL PRN (03:15)
[2025-04-21] MEDS ORDERED: DOCUSATE SOD 100 MG CAP PO PRN (03:15)
[2025-04-21] MEDS ORDERED: ONDANSETRON HCL 4 MG/2 ML VIAL IV PRN (03:15)
[2025-04-21] MEDS: SODIUM CHLORIDE 0.9% 1,000 ML IV SCH (04:12)
[2025-04-21 05:39] LABS: Hematocrit 31.6 % (36.0-46.0); Hemoglobin 10.7 g/dL (12.2-16.2); Mean Corpuscular Hemoglobin 27.4 pg (28.0-32.0); Mean Corpuscular Volume 81.0 fL (80.0-100.0); Nucleated Red Blood Cells % 0.0 %
[2025-04-21 05:52] LABS: Albumin 3.7 g/dL (3.2-4.8); Anion Gap 12 (5-15); BUN/Creatinine Ratio 37.5 (10.0-20.0); Blood Urea Nitrogen 18 mg/dL (9-23); Calcium 9.2 mg/dL (8.7-10.4); Carbon Dioxide 28 mmol/L (20-31); Glucose 88 mg/dL (74-106); Potassium 4.1 mmol/L (3.5-5.1); Sodium 137 mmol/L (136-145); Total Protein 7.2 g/dL (5.7-8.2)
[2025-04-21 05:53] LABS: Bilirubin, Total 0.6 mg/dL (0.2-1.0)
[2025-04-21 06:09] LABS: Alanine Aminotransferase 49 U/L (7-40); Alkaline Phosphatase 844 U/L (46-116); Chloride 97 mmol/L (98-107)
[2025-04-21] MEDS ORDERED: VANCOMYCIN PER PHARMACY 0 MG IV SCH (06:15)
[2025-04-21] MEDS: methylPREDNISolone SOD SUCC 40 MG/ML VL IV SCH (06:48)
[2025-04-21] MEDS: VANCOMYCIN 1.25GM/250ML 250 ML IV ONE ×2 (06:48→07:24)
--- NOTE | 2025-04-21 06:54 | ECG ---
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
[2025-04-21] MEDS: IPRATROPIUM BROM 0.5 MG/2.5ML INH SOL NEB PRN (08:10)
[2025-04-21] MEDS: ALBUTEROL SULF 2.5 MG/0.5ML(0.5%) NEB SOLN NEB PRN (08:10)
[2025-04-21] MEDS: FAMOTIDINE (10MG/ML) 2ML VL IV SCH (09:41)
[2025-04-21] MEDS ORDERED: VANCOMYCIN 1GM/250ML KIT 250 ML IV SCH (11:00)
--- NOTE | 2025-04-21 14:16 | DVHPN2 ---
Reviewed: Care Plan, H&P, Labs, Medications, Previous Orders, Radiology Changes from previous H/P or p: No Changes Eyes: No Pain, No Vision change, No Conjunctivae inflammation, No Eyelid inflammation, No Other, No Redness ENT: No Ear pain, No Ear discharge, No Nose pain, No Nose discharge, No Nose congestion, No Mouth pain, No Mouth swelling, No Throat pain, No Throat swelling, No Other Cardiovascular: Chest Pain (Open wound); No Palpitations, No Orthopnea, No Paroxysmal Noc. Dyspnea, No Edema, No Lt Headedness, No Other Respiratory: No Cough, No Dry, No Shortness of breath; SOB with excertion; No Wheezing, No Hemoptysis, No Pleuritic Pain, No Sputum; Other (SOB at rest) Gastrointestinal: No Nausea, No Vomiting, No Abdominal Pain, No Diarrhea, No Constipation, No Melena, No Hematochezia, No Other Genitourinary: No Dysuria, No Frequency, No Incontinence, No Hematuria, No Retention, No Other Musculoskeletal: No other, No neck pain, No shoulder pain, No arm pain, No back pain, No hand pain, No leg pain, No foot pain Skin: Rash, Jaundice, Bruising, Other (Chest lesions, multiple wound.) Objective Vitals Vital Signs Date Time Temp Pulse Resp B/P (MAP) Pulse Ox O2 Delivery O2 Flow Rate FiO2 04/21/25 12:00 98.4 90 13 145/69 (94) 94 98.4 04/21/25 08:11 Oxymizer 5 N/A Medications Current Medications Medications Dose Ordered Sig/Efren Route Start Time Stop Time Status Last Admin Dose Admin Methylprednisolone Sodium Succinate 40 mg Q8HR IV 04/21/25 06:00 04/21/25 06:48 40 MG Famotidine 20 mg Q12HR IV 04/21/25 10:00 04/21/25 09:41 20 MG Albuterol 2.5 mg Q4HPRN PRN NEB 04/21/25 03:15 04/21/25 08:10 2.5 MG Ipratropium [place] 0.5 mg Q4HPRN PRN NEB 04/21/25 03:15 04/21/25 08:10 0.5 MG Oxycodone HCl 10 mg Q12HR PO 04/21/25 10:00 04/21/25 09:41 10 MG Sodium Chloride 1,000 ml @ 60 mls/hr [id number] IV 04/21/25 03:15 04/21/25 04:12 60 MLS/HR Ondansetron HCl 4 mg Q4HP PRN IV 04/21/25 03:15 Docusate Sodium 100 mg BIDPRN PRN PO 04/21/25 03:15 Acetaminophen 650 mg Q6HP PRN PO 04/21/25 03:15 Nitroglycerin 0.4 mg Q5MINP PRN SL 04/21/25 03:15 Vancomycin HCl 0 ml @ 0 mls/hr PER PHARMACY IV 04/21/25 06:15 Vancomycin HCl 250 ml @ 200 mls/hr Q12H IV 04/21/25 21:00 Laboratory Results Laboratory Tests 04/21/25 05:14 Chemistry Test 04/21/25 01:57 04/21/25 05:14 Albumin 3.7 g/dL (3.2-4.8) 3.7 g/dL (3.2-4.8) Calcium Level 9.6 mg/dL (8.7-10.4) 9.2 mg/dL (8.7-10.4) Total Protein 7.5 g/dL (5.7-8.2) 7.2 g/dL (5.7-8.2) Cardiac Markers Test 04/21/25 01:57 B-Type Natriuretic Peptide 54.92 pg/mL (0-100) LFT Test 04/21/25 01:57 04/21/25 05:14 Alanine Aminotransferase (ALT) 53 U/L (7-40) H 49 U/L (7-40) H Alkaline Phosphatase 867 U/L (46-116) H 844 U/L (46-116) H Aspartate Amino Transferase (AST) 97 U/L (13-40) H 91 U/L (13-40) H Total Bilirubin 0.8 mg/dL (0.2-1.0) 0.6 mg/dL (0.2-1.0) Labs and/or images reviewed: Labs reviewed by me, Image(s) reviewed by me Assessment/Plan Assessment/Plan Acute respiratory distress Lung cancer with extensive mets : vancomycin albuterol Atrovent Solu-Medrol Generalized weakness Multiple lesions of metastatic malignancy COPD Asthma hospice revoked Time spent 65 minutes Patient is full code Advanced care planning time 20 mts Plan discussed with: Patient Date of Service: Apr 21, 2025 Billing Provider: JEFRY THORPE MD Common Visit Codes: [id number] CARE 30-74 MIN JEFRY THORPE MD Apr 21, 2025 14:16
[2025-04-21] MEDS: ACETAMINOPHEN 325 MG TAB PO PRN (17:50)
[2025-04-21] MEDS: VANCOMYCIN 1GM/250ML KIT 250 ML IV SCH (21:02)
[2025-04-22] VITALS (12 sets, daily range): BP systolic 115–145; BP diastolic 6–95; PULSE 86–101; RESP 16–22; TEMP 97.2–97.9; O2SAT 90–99
--- NOTE | 2025-04-22 | DVHINCON2 ---
Date of service: Apr 21, [address] Bob Reason for Consultation Acute hypoxic respiratory failure, COPD exacerbation and pulmonary mass. History of Present Illness A 65-year-old woman with past medical history of asthma, COPD, breast cancer with mets, and on hospice care who presented to ED on 04/21/25 with complaint of shortness of breath. As reported by EMS, patient was picked up at home, noted to be experiencing shortness of breath since the day prior, desaturating at 78% at 4 L/min with increased work of breathing. Patient was given breathing treatment and stabilized by EMS en route to ED. Workup in ED; laboratory data shows WBC 10.1, platelets 213, sodium 134, potassium 4.1, BUN 12, creatinine 0.50, GFR 103, glucose 92, calcium 9.6, AST 97, ALT 53, total bilirubin 0.8, alkaline phos is 67, BNP 54.92. Initial vitals show blood pressure 148/98, heart rate 108, temperature 99.6 F, O2 saturation 94% on oxygen. Chest x-ray revealing interval removal of right PICC line; innumerable bilateral pulmonary mass lesions and nodules consistent with probable pulmonary metastatic disease. Patient was admitted for further care. Pulmonary consultation is requested for evaluation and management of acute hypoxic respiratory failure, COPD exacerbation and pulmonary mass. Review of Systems: 14-point review of systems negative unless otherwise noted above. Past Medical History COPD, Asthma, Breast cancer with mets. Past Surgical History Multiple PICC line placement Medications: Reviewed. Allergies: Meperidine Morphine Hydrocodone Family History: No family history of premature CAD. No family history of lung disorders. Social History: Nonsmoker. No alcohol or illicit drug use. Family History: Patient reports no known family medical history. Allergies: Coded Allergies: Meperidine (Verified Allergy, Unknown, 01/07/18) Morphine (Verified Allergy, Unknown, 01/07/18) Hydrocodone (Verified Adverse Reaction, Mild, itching, 04/05/25) pt refused this meds due to adverse reaction Home Meds Active Scripts Clindamycin Hcl (Clindamycin Hcl) 300 Mg Cap, 1 CAP PO TID, #21 CAP Prov:JUAN CAST MD 04/09/25 Amoxicillin & Pot Clavulanate (AUGMENTIN TABLET) 875 Mg Tb, 875 MG PO BID, #20 TAB Prov:JUAN CAST MD 04/09/25 Fentanyl (Fentanyl) 25 Mcg/Hr Dis, 25 MCG TD every 72 hours PRN, #4 DIS Prov:JUAN CAST MD 04/09/25 Reported Medications Oxycodone Hcl (OxyCONTIN ER Tablet) 10 Mg Tb, 1 TAB PO BID 04/05/25 Bolptupupey-Fjttaoxduvvx-Zqskg (Trelegy Ellipta 100-62.5-25 Mcg/INH) 1 Aer Aer, 1 PUFF INH DAILY 04/05/25 Current Medications Current Medications Medications (Trade) Dose Ordered Sig/Efren Route PRN Reason Start Time Stop Time Status Last Admin Methylprednisolone Sodium Succinate (Solu Medrol) 40 mg Q8HR IV 04/21/25 06:00 04/21/25 21:02 Famotidine (Pepcid Injection) 20 mg Q12HR IV 04/21/25 10:00 04/21/25 21:02 Albuterol (Ventolin Medneb) 2.5 mg Q4HPRN PRN NEB SHORTNESS OF BREATH 04/21/25 03:15 04/21/25 22:03 Ipratropium [place] (Atrovent Medneb) 0.5 mg Q4HPRN PRN NEB SHORTNESS OF BREATH 04/21/25 03:15 04/21/25 22:03 Oxycodone HCl (OxyCONTIN ER Tablet) 10 mg Q12HR PO 04/21/25 10:00 04/21/25 20:22 DC 04/21/25 09:41 Sodium Chloride 1,000 ml @ 60 mls/hr [id number] IV 04/21/25 03:15 04/21/25 21:25 Ondansetron HCl (Zofran) 4 mg Q4HP PRN IV NAUSEA / VOMITING 04/21/25 03:15 Docusate Sodium (Colace Capsule) 100 mg BIDPRN PRN PO FOR CONSTIPATION 04/21/25 03:15 Acetaminophen (Tylenol Tablet) 650 mg Q6HP PRN PO PAIN SCALE 1-3 OR TEMP>100.4 04/21/25 03:15 04/21/25 17:50 Nitroglycerin (Ntrostat Sublingual) 0.4 mg Q5MINP PRN SL FOR CHEST PAIN 04/21/25 03:15 Vancomycin HCl 0 ml @ 0 mls/hr PER PHARMACY IV 04/21/25 06:15 Vancomycin HCl 250 ml @ 200 mls/hr Q12H IV 04/21/25 11:00 04/21/25 10:51 DC Vancomycin HCl 250 ml @ 200 mls/hr Q12H IV 04/21/25 21:00 04/21/25 21:02 Oxycodone HCl (OxyCONTIN ER Tablet) 10 mg Q6HP PRN PO PAIN SCALE 7 THRU 10 04/21/25 19:05 04/21/25 20:28 Vital Signs Vital Signs Date Time Temp Pulse Resp B/P (MAP) Pulse Ox O2 Delivery O2 Flow Rate FiO2 04/21/25 22:13 81 18 99 04/21/25 22:03 Oxymizer 6.0 04/21/25 22:03 N/A 04/21/25 20:55 97.4 142/82 (102) 97.4 Physical Exam Gen.: Patient lying in bed in no apparent distress. On supplemental oxygen. Head: Normocephalic, atraumatic. Eyes: EOMI/PERRLA. Ears: Normal hearing. Normal anatomy. Neck/trachea: Trachea midline, supple. Nose: Normal external anatomy. Mouth: Moist mucous membranes. Chest: Decreased air entry bilaterally. No wheezing or rhonchi. Cardiovascular: Positive S1, positive S2. Regular rate and rhythm. Abdomen: Positive bowel sounds in all 4 quadrants. Soft, non-tender, non- distended. : Deferred. Rectal: Deferred. Skin: Warm, dry. Intact. Extremities: 2+ radial pulses bilaterally. No lower extremity edema. Neuro: Awake, alert, oriented x3. No gross motor or sensory deficits. Cranial ne rves II through XII intact. Gait not assessed. Labs/Diagnostic Data Labs Test 04/21/25 05:14 04/21/25 01:57 Range/Units White Blood Count 9.4 4.4-10.8 10^3/uL Red Blood Count 3.90 L 4.0-5.20 10^6/uL Hemoglobin 10.7 L 12.2-16.2 g/dL Hematocrit 31.6 #L 36.0-46.0 % Mean Corpuscular Volume 81.0 80.0-100.0 fL Mean Corpuscular Hemoglobin 27.4 L 28.0-32.0 pg Mean Corpuscular Hemoglobin Concent 33.8 32.0-36.0 g/dL Red Cell Distribution Width 17.6 H 11.8-14.3 % Platelet Count 235 140-450 10^3/uL Mean Platelet Volume 6.7 L 6.9-10.8 fL Neutrophils (%) (Auto) 94.9 H 37.0-80.0 % Lymphocytes (%) (Auto) 2.6 L 10.0-50.0 % Monocytes (%) (Auto) 2.5 0.0-12.0 % Eosinophils (%) (Auto) 0.0 0.0-7.0 % Basophils (%) (Auto) 0.0 0.0-2.0 % Neutrophils # (Auto) 8.9 H 1.6-8.6 10 ^3/uL Lymphocytes # (Auto) 0.2 L 0.4-5.4 10 ^3/uL Monocytes # (Auto) 0.2 0-1.3 10 ^3/uL Eosinophils # (Auto) 0 0-0.8 10 ^3/uL Basophils # (Auto) 0 0-0.2 10 ^3/uL Nucleated Red Blood Cells 0.0 % Sodium Level 137 136-145 mmol/L Potassium Level 4.1 3.5-5.1 mmol/L Chloride Level 97 L 98-107 mmol/L Carbon Dioxide Level 28 20-31 mmol/L Anion Gap 12 5-15 Blood Urea Nitrogen 18 9-23 mg/dL Creatinine 0.48 L 0.550-1.02 mg/dL Glomerular Filtration Rate Calc 104 >90 mL/min BUN/Creatinine Ratio 37.5 H 10.0-20.0 Serum Glucose 88 74-106 mg/dL Calcium Level 9.2 8.7-10.4 mg/dL Total Bilirubin 0.6 0.2-1.0 mg/dL Aspartate Amino Transferase (AST) 91 H 13-40 U/L Alanine Aminotransferase (ALT) 49 H 7-40 U/L Alkaline Phosphatase 844 H 46-116 U/L Troponin I High Sensitivity 14 </=34 ng/L Total Protein 7.2 5.7-8.2 g/dL Albumin 3.7 3.2-4.8 g/dL B-Type Natriuretic Peptide 54.92 0-100 pg/mL Assessment Impression: Acute hypoxic respiratory failure Dependence on supplemental oxygen Pulmonary mass COPD exacerbation Metastatic breast cancer Generalized weakness Plan: Supplemental oxygen Titrate to keep O2 sats above 92%. Currently on 6 LPM Oxymizer Taper O2 as tolerated. Continue bronchodilators. Continue antibiotics Follow up cultures IV steroids Incentive spirometry IV fluids with NS at 60 ml/hr. PICC line removal. Chest x-ray revealing interval removal of right PICC line; innumerable bilateral pulmonary mass lesions and nodules consistent with probable pulmonary metastatic disease. Follow up Oncology recs Pain control Avoid oversedation Pepcid for GI ppx Monitor renal function. Monitor electrolytes. Supplement as necessary. Monitor ins and outs. DVT prophylaxis. Prognosis: Poor given patient's multiple co-morbidities. Rest of plan per hospitalist and other consultants. Thank you, Dr. Bob, for allowing me to participate in this patient's care. Further recommendations will depend on the patient's clinical course. Please do not hesitate to contact me if you have any questions or concerns. This medical document was created using an electronic medical record system with [employer] dictation system. Although these documentations are being carefully reviewed, there may still be some phonetic and typographical changes. The errors are purely typographical, due to imperfection on the software program, and do not reflect any compromise in the patient's medical care. Plan discussed with: Patient, Other (TREVON Mcnamara/Dr. Bob) Visit Coding Pulmonary Billing Provider: PETER BUSH MD Date of Service if different f: Apr 21, 2025 Common Visit Codes: [id number] INP/OBS CARE (HIGH) PETER BUSH MD Apr 22, 2025 00:00
[2025-04-22 07:27] LABS: Hemoglobin 10.8 g/dL (12.2-16.2); Mean Corpuscular Hemoglobin 26.5 pg (28.0-32.0); Nucleated Red Blood Cells % 0.0 %
[2025-04-22 07:29] LABS: Hematocrit 32.6 % (36.0-46.0); Mean Corpuscular Volume 79.8 fL (80.0-100.0)
[2025-04-22 07:42] LABS: Albumin 3.7 g/dL (3.2-4.8); Anion Gap 14 (5-15); BUN/Creatinine Ratio 42.5 (10.0-20.0); Bilirubin, Total 0.6 mg/dL (0.2-1.0); Blood Urea Nitrogen 17 mg/dL (9-23); Calcium 9.0 mg/dL (8.7-10.4); Carbon Dioxide 26 mmol/L (20-31); Potassium 3.7 mmol/L (3.5-5.1); Sodium 137 mmol/L (136-145); Total Protein 7.1 g/dL (5.7-8.2)
[2025-04-22 07:43] LABS: Alanine Aminotransferase 51 U/L (7-40); Alkaline Phosphatase 844 U/L (46-116); Chloride 97 mmol/L (98-107); Glucose 115 mg/dL (74-106)
--- NOTE | 2025-04-22 10:12 | DVHPN2 ---
Reviewed: Care Plan, H&P, Labs, Medications, Previous Orders, Radiology Changes from previous H/P or p: No Changes Eyes: No Pain, No Vision change, No Conjunctivae inflammation, No Eyelid inflammation, No Other, No Redness ENT: No Ear pain, No Ear discharge, No Nose pain, No Nose discharge, No Nose congestion, No Mouth pain, No Mouth swelling, No Throat pain, No Throat swelling, No Other Cardiovascular: Chest Pain (Open wound); No Palpitations, No Orthopnea, No Paroxysmal Noc. Dyspnea, No Edema, No Lt Headedness, No Other Respiratory: No Cough, No Dry, No Shortness of breath; SOB with excertion; No Wheezing, No Hemoptysis, No Pleuritic Pain, No Sputum; Other (SOB at rest) Gastrointestinal: No Nausea, No Vomiting, No Abdominal Pain, No Diarrhea, No Constipation, No Melena, No Hematochezia, No Other Genitourinary: No Dysuria, No Frequency, No Incontinence, No Hematuria, No Retention, No Other Musculoskeletal: No other, No neck pain, No shoulder pain, No arm pain, No back pain, No hand pain, No leg pain, No foot pain Skin: Rash, Jaundice, Bruising, Other (Chest lesions, multiple wound.) Objective Vitals Vital Signs Date Time Temp Pulse Resp B/P (MAP) Pulse Ox O2 Delivery O2 Flow Rate FiO2 04/22/25 08:37 97 18 99 04/22/25 08:29 Oxymizer 6.0 04/22/25 08:29 N/A 04/22/25 04:55 97.9 144/83 (103) 97.9 Intake/Output Intake and Output 04/22/25 07:00 Intake Total 740 ml Output Total 0 ml Balance 740 ml Intake Oral 240 ml IV Total 500 ml Output Urine Total 0 ml Medications Current Medications Medications Dose Ordered Sig/Efren Route Start Time Stop Time Status Last Admin Dose Admin Methylprednisolone Sodium Succinate 40 mg Q8HR IV 04/21/25 06:00 04/22/25 05:44 40 MG Famotidine 20 mg Q12HR IV 04/21/25 10:00 04/21/25 21:02 20 MG Albuterol 2.5 mg Q4HPRN PRN NEB 04/21/25 03:15 04/22/25 08:29 2.5 MG Ipratropium [place] 0.5 mg Q4HPRN PRN NEB 04/21/25 03:15 04/22/25 08:29 0.5 MG Sodium Chloride 1,000 ml @ 60 mls/hr [id number] IV 04/21/25 03:15 04/21/25 21:25 60 MLS/HR Ondansetron HCl 4 mg Q4HP PRN IV 04/21/25 03:15 Docusate Sodium 100 mg BIDPRN PRN PO 04/21/25 03:15 Acetaminophen 650 mg Q6HP PRN PO 04/21/25 03:15 04/21/25 17:50 650 MG Nitroglycerin 0.4 mg Q5MINP PRN SL 04/21/25 03:15 Vancomycin HCl 0 ml @ 0 mls/hr PER PHARMACY IV 04/21/25 06:15 Vancomycin HCl 250 ml @ 200 mls/hr Q12H IV 04/21/25 21:00 04/21/25 21:02 200 MLS/HR Oxycodone HCl 10 mg Q6HP PRN PO 04/21/25 19:05 04/22/25 08:31 10 MG Laboratory Results Laboratory Tests 04/22/25 05:34 Chemistry Test 04/22/25 05:34 Albumin 3.7 g/dL (3.2-4.8) Calcium Level 9.0 mg/dL (8.7-10.4) Total Protein 7.1 g/dL (5.7-8.2) LFT Test 04/22/25 05:34 Alanine Aminotransferase (ALT) 51 U/L (7-40) H Alkaline Phosphatase 844 U/L (46-116) H Aspartate Amino Transferase (AST) 78 U/L (13-40) H Total Bilirubin 0.6 mg/dL (0.2-1.0) Labs and/or images reviewed: Labs reviewed by me, Image(s) reviewed by me Assessment/Plan Assessment/Plan Acute respiratory distress History of Breast cancer diagnosed six years ago status post left mastectomy now undergoing radiation therapy at [facility] Extensive anterior chest wall open wounds secondary to radiation therapy: Wound cultures wound consult, continue vancomycin, add azithromycin Lung cancer with extensive mets :vancomycin albuterol Atrovent Solu-Medrol Generalized weakness Multiple metastatic lesions COPD Asthma hospice revoked Time spent 65 minutes Patient is full code Advanced care planning time 20 mts RN Bebe at bedside Social service consult for living situation Plan discussed with: Patient My Orders Orders - JEFRY THORPE MD Procedure Category Date Status Time Insert Midline ORDERS 04/22/25 Transmitted 07:02 Cleanse Wound With MAYRA 04/22/25 In Process Wound Clean 09:26 * Dietary Consult CONS 04/22/25 Transmitted 09:38 Date of Service: Apr 22, 2025 Billing Provider: JEFRY THORPE MD Common Visit Codes: [id number] CARE 30-74 MIN JEFRY THORPE MD Apr 22, 2025 10:12
--- NOTE | 2025-04-22 11:25 | DVH ---
CT abdomen and pelvis without contrast INDICATION: Elevated alkaline phosphatase TECHNIQUE: Serial axial images were performed through the abdomen and pelvis and then reformatted in the sagittal and coronal plane. All CT scans at this medical facility are performed using dose modulation techniques as appropriate to a performed exam including the following: Automated exposure control was utilized; adjustment of the MA and/or KvP according to patient size; and use of iterative reconstruction technique. FINDINGS: Images through the lung bases show multiple pulmonary metastasis. There is a large right breast mass. Multiple low-density masses throughout the liver probably metastasis. Spleen unremarkable Kidneys unremarkable Adrenal glands unremarkable. Pancreas unremarkable. No enlarged lymph nodes. No free fluid. In the pelvis the bladder is smooth walled. No free fluid. No enlarged nodes On bone windows lytic areas seen in the left posterior inferior ilium IMPRESSION: 1. Multiple pulmonary and hepatic metastasis. Probable bony metastasis. 2. Right breast mass. Question primary carcinoma Computed Tomographic Radiation Dosimetry Report: Total CTDI vol = 16 mGy Total DLP = 748 mGy-cm Low dose protocols were performed.
[2025-04-22] MEDS ORDERED: ALBUTEROL SULF 2.5 MG/0.5ML(0.5%) NEB SOLN NEB SCH (18:00)
[2025-04-22] MEDS ORDERED: IPRATROPIUM BROM 0.5 MG/2.5ML INH SOL NEB SCH (18:00)
--- NOTE | 2025-04-22 23:35 | DVHPN2 ---
Subjective DOS: 04/22/2025 Patient seen and examined at bedside. Remains on supplemental oxygen Overnight events reviewed. Reviewed: Care Plan, H&P, Labs, Medications, Previous Orders, Radiology Changes from previous H/P or p: No Changes Eyes: No Pain, No Vision change, No Conjunctivae inflammation, No Eyelid inflammation, No Other, No Redness ENT: No Ear pain, No Ear discharge, No Nose pain, No Nose discharge, No Nose congestion, No Mouth pain, No Mouth swelling, No Throat pain, No Throat swelling, No Other Cardiovascular: Chest Pain (Open wound); No Palpitations, No Orthopnea, No Paroxysmal Noc. Dyspnea, No Edema, No Lt Headedness, No Other Respiratory: No Cough, No Dry, No Shortness of breath; SOB with excertion; No Wheezing, No Hemoptysis, No Pleuritic Pain, No Sputum; Other (SOB at rest) Gastrointestinal: No Nausea, No Vomiting, No Abdominal Pain, No Diarrhea, No Constipation, No Melena, No Hematochezia, No Other Genitourinary: No Dysuria, No Frequency, No Incontinence, No Hematuria, No Retention, No Other Musculoskeletal: No other, No neck pain, No shoulder pain, No arm pain, No back pain, No hand pain, No leg pain, No foot pain Skin: Rash, Jaundice, Bruising, Other (Chest lesions, multiple wound.) Objective Vitals Vital Signs Date Time Temp Pulse Resp B/P (MAP) Pulse Ox O2 Delivery O2 Flow Rate FiO2 04/22/25 13:46 95 16 99 04/22/25 13:38 Oxymizer 6.0 04/22/25 13:38 N/A 04/22/25 13:00 97.7 131/67 (88) 97.7 Intake/Output Intake and Output 04/22/25 07:00 Intake Total 740 ml Output Total 0 ml Balance 740 ml Intake Oral 240 ml IV Total 500 ml Output Urine Total 0 ml Exam Gen.: Patient lying in bed in no apparent distress. On supplemental oxygen. Head: Normocephalic, atraumatic. Eyes: EOMI/PERRLA. Ears: Normal hearing. Normal anatomy. Neck/trachea: Trachea midline, supple. Nose: Normal external anatomy. Mouth: Moist mucous membranes. Chest: Decreased air entry bilaterally. No wheezing or rhonchi. Cardiovascular: Positive S1, positive S2. Regular rate and rhythm. Abdomen: Positive bowel sounds in all 4 quadrants. Soft, non-tender, non- distended. : Deferred. Rectal: Deferred. Skin: Warm, dry. Intact. Extremities: 2+ radial pulses bilaterally. No lower extremity edema. Neuro: Awake, alert, oriented x3. No gross motor or sensory deficits. Cranial nerves II through XII intact. Gait not assessed. Laboratory Results Laboratory Tests 04/22/25 05:34 Chemistry Test 04/22/25 05:34 Albumin 3.7 g/dL (3.2-4.8) Calcium Level 9.0 mg/dL (8.7-10.4) Total Protein 7.1 g/dL (5.7-8.2) LFT Test 04/22/25 05:34 Alanine Aminotransferase (ALT) 51 U/L (7-40) H Alkaline Phosphatase 844 U/L (46-116) H Aspartate Amino Transferase (AST) 78 U/L (13-40) H Total Bilirubin 0.6 mg/dL (0.2-1.0) Assessment/Plan Assessment/Plan Impression: Acute hypoxic respiratory failure Dependence on supplemental oxygen Pulmonary mass COPD exacerbation Metastatic breast cancer Generalized weakness Events: Remains on supplemental oxygen, 6 LPM Oxymizer Taper O2 as tolerated CT abdomen-pelvis reviewed, notable for: 1. Multiple pulmonary and hepatic metastasis. Probable bony metastasis. 2. Right breast mass. Question primary carcinoma. Continue bronchodilators - albuterol HFA + med neb. Continue steroids Continue IV antibiotics Incentive spirometry Wound care. Labs and imaging reviewed. Rest of plan as noted below. Plan: Supplemental oxygen Titrate to keep O2 sats above 92%. Continue bronchodilators. Continue antibiotics Follow up cultures IV steroids Incentive spirometry IV fluids with NS at 60 ml/hr. PICC line removal. Chest x-ray revealing interval removal of right PICC line; innumerable bilateral pulmonary mass lesions and nodules consistent with probable pulmonary metastatic disease. Follow up Oncology recs Pain control Avoid oversedation Pepcid for GI ppx Monitor renal function. Monitor electrolytes. Supplement as necessary. Monitor ins and outs. DVT prophylaxis. Prognosis: Poor given patient's multiple co-morbidities. Rest of plan per hospitalist and other consultants. Thank you, Dr. Bob, for allowing me to participate in this patient's care. Further recommendations will depend on the patient's clinical course. Please do not hesitate to contact me if you have any questions or concerns. This medical document was created using an electronic medical record system with [employer] computerized dictation system. Although these documentations are being carefully reviewed, there may still be some phonetic and typographical changes. The errors are purely typographical, due to imperfection on the software program, and do not reflect any compromise in the patient's medical care. Plan discussed with: Patient, Other (RN) Visit Coding Pulmonary Billing Provider: PETER BUSH MD Date of Service if different f: Apr 22, 2025 Common Visit Codes: [id number] INP/OBS CARE(HIGH) PETER BUSH MD Apr 22, 2025 23:35
--- NOTE | 2025-04-23 07:47 | DVHDS2 ---
Discharge Summary Date of Admission Apr 21, 2025 at 03:12 Date of Discharge: Apr 23, 2025 Admitting Diagnosis Shortness of breath Wounds: Extensive anterior chest wall wound secondary to radiation therapy Labs/Diagnostic Data: Laboratory Results Test 04/22/25 05:34 04/21/25 05:14 04/21/25 01:57 White Blood Count 11.5 10^3/uL (4.4-10.8) Red Blood Count 4.09 10^6/uL (4.0-5.20) Hemoglobin 10.8 g/dL (12.2-16.2) Hematocrit 32.6 % (36.0-46.0) Mean Corpuscular Volume 79.8 fL (80.0-100.0) Mean Corpuscular Hemoglobin 26.5 pg (28.0-32.0) Mean Corpuscular Hemoglobin Concent 33.2 g/dL (32.0-36.0) Red Cell Distribution Width 17.9 % (11.8-14.3) Platelet Count 263 10^3/uL (140-450) Mean Platelet Volume 6.7 fL (6.9-10.8) Neutrophils (%) (Auto) 92.3 % (37.0-80.0) Lymphocytes (%) (Auto) 3.0 % (10.0-50.0) Monocytes (%) (Auto) 4.6 % (0.0-12.0) Eosinophils (%) (Auto) 0.0 % (0.0-7.0) Basophils (%) (Auto) 0.1 % (0.0-2.0) Neutrophils # (Auto) 10.7 10 ^3/uL (1.6-8.6) Lymphocytes # (Auto) 0.3 10 ^3/uL (0.4-5.4) Monocytes # (Auto) 0.5 10 ^3/uL (0-1.3) Eosinophils # (Auto) 0 10 ^3/uL (0-0.8) Basophils # (Auto) 0 10 ^3/uL (0-0.2) Nucleated Red Blood Cells 0.0 % Sodium Level 137 mmol/L (136-145) Potassium Level 3.7 mmol/L (3.5-5.1) Chloride Level 97 mmol/L (98-107) Carbon Dioxide Level 26 mmol/L (20-31) Anion Gap 14 (5-15) Blood Urea Nitrogen 17 mg/dL (9-23) Creatinine 0.40 mg/dL (0.550-1.02) Glomerular Filtration Rate Calc 108 mL/min (>90) BUN/Creatinine Ratio 42.5 (10.0-20.0) Serum Glucose 115 mg/dL (74-106) Calcium Level 9.0 mg/dL (8.7-10.4) Total Bilirubin 0.6 mg/dL (0.2-1.0) Aspartate Amino Transferase (AST) 78 U/L (13-40) Alanine Aminotransferase (ALT) 51 U/L (7-40) Alkaline Phosphatase 844 U/L (46-116) Total Protein 7.1 g/dL (5.7-8.2) Albumin 3.7 g/dL (3.2-4.8) Troponin I High Sensitivity 14 ng/L (</=34) B-Type Natriuretic Peptide 54.92 pg/mL (0-100) Other Laboratory Tests 04/22/25 05:34 Brief Hx & Hospital Course: 65-year-old female with a history of lung cancer with the extensive metastasis extensive anterior chest wall open wound secondary to radiation therapy on hospice COPD asthma hospice revoked admitted for acute shortness of breaths. Patient was placed on vancomycin albuterol Atrovent and Solu-Medrol seen by pulmonology Dr. Pepper. Prognosis very poor secondary to the extensive metastasis. While on the floor getting further evaluation and wound care patient decided to leave AMA and left AMA. Prognosis very poor Consults/Reason for consult Pulmonology Dr. Pepper Operations or Procedures None Condition at Discharge: Poor Final Diagnosis/Problems List Acute respiratory distress History of Breast cancer diagnosed six years ago status post left mastectomy now undergoing radiation therapy at [facility] Extensive anterior chest wall open wounds secondary to radiation therapy: Wound cultures wound consult, continue vancomycin, add azithromycin Lung cancer with extensive mets :vancomycin albuterol Atrovent Solu-Medrol Generalized weakness Multiple metastatic lesions COPD Asthma hospice revoked Discharge Disposition: AMA Discharge Instruct/Medications Scheduled Amoxicillin & Pot Clavulanate (Augmentin Tablet), 875 MG PO BID Clindamycin Hcl (Clindamycin Hcl), 1 CAP PO TID [id number]-Qkzpo (Trelegy Ellipta 100-62.5-25 Mcg/INH), 1 PUFF INH DAILY, (Reported) Oxycodone Hcl (OxyCONTIN ER Tablet), 1 TAB PO BID, (Reported) Scheduled PRN Fentanyl (Fentanyl), 25 MCG TD every 72 hours PRN 39 (Time taken for discharge summary 39 minutes) Discharge Statement: "Patient was advised to return to the ER or call 911 if any headaches, dizziness, shortness of breath, chest pain, abdominal pain, bleeding, fevers, or worsening of medical condition. Patient was counseled about treatment plan, medications, possible side effects, patientverbalized understanding. All questions were answered to the best of my ability. This discharge took greater then 30 minutes in planning, reviewing documentation, counseling the patient, and discussing with other team members." ASSESSMENT ASSESSMENT Hospital Course Left AMA Assessment Date of Service: Apr 23, 2025 Billing Provider: JEFRY THORPE MD Common Visit Codes: [id number] DISCH DAY >30min JEFRY THORPE MD Apr 23, 2025 07:47
== END 2025-04-22 17:00 | disposition left against medical advice (07) | DRG 189 ==
LOC: EDUNIT# 01:13 → ER 01:13 → EDBD 01:13 → OVERFLOW 03:12 → TELE-WESTW 17:17
PROVIDERS: ADMIT Family Medicine; ATTEND Family Medicine
DX: J96.01 Acute respiratory failure with hypoxia (principal); C78.7 Secondary malignant neoplasm of liver and intrahepatic bile duct; J44.1 Chronic obstructive pulmonary disease with (acute) exacerbation; Z53.29 Procedure and treatment not carried out because of patient's decision for other reasons; F17.210 Nicotine dependence, cigarettes, uncomplicated; Z99.81 Dependence on supplemental oxygen; Z85.3 Personal history of malignant neoplasm of breast; Z85.118 Personal history of other malignant neoplasm of bronchus and lung; Z90.12 Acquired absence of left breast and nipple; Z88.5 Allergy status to narcotic agent; Z88.8 Allergy status to other drugs, medicaments and biological substances; Z79.899 Other long term (current) drug therapy
CPT/HCPCS: 36415; 71045; 74176; 80053; 83880; 84484; 85025; 87077; 87081; 87186; 87205; 93005; 94640; 96361; 96365; 96366; 96375; 96376; 99291; G0378; J3490